=== PATIENT | male | born 1950 | race Caucasian/White ===

== ENCOUNTER 2019-06-05 10:05 | Inpatient (IN) ==
[2019-06-05] MEDS ORDERED: LACTATED RINGERS 1,000 ML IV ONE (10:25)
--- NOTE | 2019-06-05 10:28 | Emergency Department Note ---
Weakness HPI - General Chief complaint: Weakness Stated complaint: General Weakness Time Seen by Provider: 06/05/19 10:08 Source: patient, EMS Mode of arrival: EMS Limitations: no limitations - History of Present Illness HPI Narrative: This patient had right arm surgery last week and today felt dizzy lightheaded and had trouble walking due to what he thought was weakness in his legs. He is not a very reliable historian when he came in last week he did not have any idea why his arm was broken or that it was. He is developmentally delayed. He does not have a headache. No back pain. He does take blood thinners for atrial fib. He does have a pacemaker in place. No abdominal pain nausea or vomiting. - Related Data Home Medications Medication Instructions Recorded Confirmed metformin 1,000 mg tablet 1,000 mg PO BIDCC tab 03/13/15 03/22/19 pioglitazone 30 mg tablet 30 mg PO DAILY tab 03/13/15 03/22/19 pregabalin 75 mg capsule 75 mg PO TID cap 03/13/15 03/22/19 vitamin B12 500 mcg-folic acid 400 1 tab PO WEEKLY tab 04/24/15 03/22/19 mcg tablet niacin 500 mg tablet,extended 1 tab PO DAILY 30 Days #30 03/23/18 03/22/19 release 24 hr insulin aspart U-100 100 unit/mL 12 unit SUB-Q TID ml 04/01/18 03/22/19 (3 mL) subcutaneous pen insulin glargine 100 unit/mL (3 60 unit SUB-Q HS ml 04/01/18 03/22/19 mL) subcutaneous pen Magnesium Oxide [Mag-Oxide 400 mg PO BID 07/17/18 03/22/19 Magnesium] Omeprazole 20 mg PO BID 07/17/18 03/22/19 Ticagrelor [Brilinta] 90 mg PO BID 07/17/18 03/10/19 ergocalciferol (vitamin D2) 50,000 50,000 unit PO Q14D 08/19/18 03/22/19 unit capsule fenofibrate nanocrystallized 160 160 mg PO DAILY 09/20/18 03/22/19 mg tablet Aspirin 81 mg PO DAILY 10/26/18 03/22/19 Calcium Carbonate/Vitamin D3 2 tab PO BID 10/26/18 03/22/19 [Calcium 500 + Vit D Caplet] Ferrous Sulfate [Feosol] 325 mg PO [facility] 10/26/18 03/22/19 Metoprolol Tartrate [Lopressor] 150 mg PO DAILY 10/26/18 03/22/19 atorvastatin 40 mg tablet 40 mg PO DAILY tab 03/22/19 04/14/19 Previous Rx's Medication Instructions Recorded folic acid 1 mg tablet 1 mg PO DAILY #30 tab 08/16/18 chlorthalidone 25 mg tablet 25 mg PO DAILY #30 tab 03/23/19 spironolactone 50 mg tablet 25 mg PO QDAY #30 tab 03/23/19 Cephalexin [Keflex] 500 mg PO QID #40 cap 04/03/19 leflunomide 10 mg tablet 10 mg PO DAILY #90 tab 04/14/19 sodium bicarbonate 325 mg tablet 325 mg PO BID #60 tab 05/23/19 amlodipine 10 mg tablet See Rx Instructions .ROUTE 06/01/19 .COMPLEX #30 tablet Allergies Allergy/AdvReac Type Severity Reaction Status Date / Time Enalapril AdvReac Mild nausea and Verified 04/14/19 08:28 vomiting losartan [Losartan] AdvReac Mild Swelling Verified 04/14/19 08:28 Review of Systems All systems ED: reviewed and negative except as stated. 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) Splenomegaly (Chronic) Subcutaneous rheumatoid nodule (Chronic) Anemia (Chronic) Chronic leukopenia (Chronic) Chronic kidney disease, stage III (moderate) (Chronic) Vitamin D deficiency (Chronic) Vertigo (Chronic) Rheumatoid arthritis (Acute) Renal osteodystrophy (Chronic) Proteinuria (Chronic) Primary hyperparathyroidism (Chronic) Obesity (Chronic) Myocardial infarction acute (Chronic) Kidney stones (Chronic) Ischemic heart disease, chronic (Chronic) Hypertensive heart disease, benign w/chronic kidney disease stage 1-4 (Chronic) Hypertensive renal disease (Chronic 11/04/13) Hyperparathyroidism, primary (Chronic) Hyperlipidemia (Chronic) Hypertensive chronic kidney disease (Chronic) HTN (hypertension) (Chronic) Hernia, inguinal (Chronic) Hemorrhoids (Chronic) Gastroesophageal reflux (Chronic) Esophageal stricture (Chronic) Diverticulosis of colon (Chronic) Diabetes mellitus, type II (Chronic ~2003) 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) Developmental delay (Chronic) History of colonic polyps (Chronic) Cataract (Chronic) Calcification and ossification of muscle (Chronic) Backache (Chronic) Atrial fibrillation (Chronic) Anemia, iron deficiency (Chronic) Abdominal pain, LUQ (Resolved) Abnormal glucose (Resolved) Bruise of toe (Resolved) Chronic kidney disease, stage II (mild) (Resolved) Coma (Resolved) Dysmetabolic syndrome X (Resolved) Encounter for long-term current use of high risk medication (Resolved) Humerus fracture (Resolved) Laceration (Resolved) Meningitis (Resolved ~2002) Sciatic leg pain (Resolved) Type 2 diabetes mellitus with stage 2 decubitus ulcer of toe (Resolved) Urinary tract infection (Resolved) Viral meningoencephalitis (Resolved) Past Surgical History (Last Reviewed 03/22/19 @ 10:36 by Mallika Enriquez MD) History of pacemaker (Chronic) History of appendectomy (Resolved) History of cardiac catheterization (Resolved) History of cholecystectomy (Resolved) History of discectomy (Resolved) History of excision of mass (Resolved) History of inguinal hernia repair (Resolved) History of lymph node excision (Resolved) History of plastic surgery (Resolved) History of removal of cyst (Resolved) Hx of decompressive lumbar laminectomy (Resolved) Family History (This Medical Record has been edited. Action required.) Mother Acute myocardial infarction, Onset Age: 42 Medical history: Reports: atrial fibrillation, DM, hypertension, myocardial infarction, renal disease. Denies: cancer, DVT, pulmonary embolus Psychiatric history: Reports: no psych history Surgical history ED: Reports: other (pacemaker) - Social History smoking status: Never smoker Alcohol use: Reports: None Drug use: Reports: none Physical Exam He does have bruising across the top of his chest and a linear band. This may have been due to positioning during surgery is very hard to know for sure. Examination of his legs are little bit difficult. He can raise both off the table but he has trouble pulling his toes up towards him. Seems to be L to push down. Seems to have normal sensation in his legs. Limitations: no limitations General appearance: alert, in no apparent distress Head: atraumatic Eye: Present: normal appearance ENT: Present: normal exam Neck: Present: normal inspection Chest: Present: normal inspection Respiratory: Present: normal lung sounds bilaterally Cardiovascular: Present: regular rate, normal rhythm, normal heart sounds Abdominal: Present: soft. Absent: distention, tenderness Neurological: Present: alert Psychiatric: Present: normal affect Skin: Present: warm, dry Course Vital Signs Temperature 98.2 F 06/05/19 10:06 Pulse Rate 110 H 06/05/19 10:06 Respiratory Rate 20 06/05/19 10:06 Blood Pressure 142/60 06/05/19 10:06 Pulse Oximetry (%) 86 L 06/05/19 10:06 Temperature 98.2 F 06/05/19 10:06 Pulse Rate 110 H 06/05/19 17:01 Respiratory Rate 14 06/05/19 17:01 Blood Pressure 155/76 06/05/19 17:01 Pulse Oximetry (%) 99 06/05/19 17:01 Weakness - MDM Narrative Medical decision making narrative: Lab work and x-ray were not very remarkable. Patient continued to have a heart rate of 1 10-1 20 and it was regular and paced. I did talk to the installation and repair technician in [facility] who said the patient has an underlying complete heart block. He said to be nice to know the underlying rhythm but that needs to be interrogated by the pacemaker rep who refuses [facility] Psychology Lecturer did recommend treating with diltiazem as this could be a regular atrial fib due to the pacemaker. Dr. Miller will admit the patient to telemetry on diltiazem. - Lab Data Lab results reviewed: Yes I reviewed the patient's lab results. Result diagrams: 06/05/19 10:38 06/05/19 10:38 Lab Results 06/05/19 06/05/19 06/05/19 Range/Units 10:38 10:38 10:38 WBC 9.8 (4.5-11.0) K/mcL RBC 3.69 L (4.50-5.90) M/mcL Hgb 10.3 L (13.5-16.5) g/dL Hct 30.6 L (41.0-55.0) % MCV 83.0 (80.0-100.0) fL MCH 28.0 (26.0-34.0) pg MCHC 33.7 (31.0-36.0) g/dL RDW 14.8 H (11.5-14.5) % Plt Count 228 (140-440) K/mcL MPV 8.4 (7.4-10.4) fL Gran % 88.6 H (38.0-78.0) % Lymph % (Auto) 3.9 L (15.5-49.0) % Hutchinson % (Auto) 6.9 (1.0-12.0) % Eos % (Auto) 0.3 (0.0-7.0) % Baso % (Auto) 0.3 (0.0-2.0) % Gran # 8.7 H (1.8-8.0) K/mcL Lymph # (Auto) 0.4 L (1.5-4.8) K/mcL Hutchinson # (Auto) 0.7 (0.1-0.9) K/mcL Eos # (Auto) 0 (0.0-0.7) K/mcL Baso # (Auto) 0 (0.0-0.3) K/mcL PT (11.9-14.5) sec INR (0.9-1.1) Sodium 132 L (133-145) mmol/L Potassium 3.8 (3.3-5.1) mmol/L Chloride 91 L (96-108) mmol/L Carbon Dioxide 21 L (22-30) mmol/L Anion Gap 20.0 H (8-16) BUN 43 H (8-23) mg/dl Creatinine 1.4 H (0.7-1.2) mg/dl GFR Calculation 51 Glucose 276 H (70-105) mg/dL Calcium 9.5 (8.6-10.4) mg/dl Total Bilirubin 0.9 (0.0-1.0) mg/dL AST 40 H (0-37) U/l ALT 25 (0-40) U/l Alkaline Phosphatase 70 (39-117) U/L Troponin T 0.05 H* (0-0.03) ng/ml NT-Pro-B Natriuret Pep (0-125) pg/ml Total Protein 6.9 (5.9-8.4) gm/dL Albumin 3.6 (3.2-5.2) gm/dL Globulin 3.3 (2.2-3.7) gm/dL Albumin/Globulin Ratio 1.1 (1.0-2.3) 06/05/19 06/05/19 06/05/19 Range/Units 10:38 10:38 15:00 WBC (4.5-11.0) K/mcL RBC (4.50-5.90) M/mcL Hgb (13.5-16.5) g/dL Hct (41.0-55.0) % MCV (80.0-100.0) fL MCH (26.0-34.0) pg MCHC (31.0-36.0) g/dL RDW (11.5-14.5) % Plt Count (140-440) K/mcL MPV (7.4-10.4) fL Gran % (38.0-78.0) % Lymph % (Auto) (15.5-49.0) % Hutchinson % (Auto) (1.0-12.0) % Eos % (Auto) (0.0-7.0) % Baso % (Auto) (0.0-2.0) % Gran # (1.8-8.0) K/mcL Lymph # (Auto) (1.5-4.8) K/mcL Hutchinson # (Auto) (0.1-0.9) K/mcL Eos # (Auto) (0.0-0.7) K/mcL Baso # (Auto) (0.0-0.3) K/mcL PT 14.6 H (11.9-14.5) sec INR 1.1 (0.9-1.1) Sodium (133-145) mmol/L Potassium (3.3-5.1) mmol/L Chloride (96-108) mmol/L Carbon Dioxide (22-30) mmol/L Anion Gap (8-16) BUN (8-23) mg/dl Creatinine (0.7-1.2) mg/dl GFR Calculation Glucose (70-105) mg/dL Calcium (8.6-10.4) mg/dl Total Bilirubin (0.0-1.0) mg/dL AST (0-37) U/l ALT (0-40) U/l Alkaline Phosphatase (39-117) U/L Troponin T 0.03 (0-0.03) ng/ml NT-Pro-B Natriuret Pep 2382.0 H (0-125) pg/ml Total Protein (5.9-8.4) gm/dL Albumin (3.2-5.2) gm/dL Globulin (2.2-3.7) gm/dL Albumin/Globulin Ratio (1.0-2.3) - Radiology Data Radiology results reviewed: Yes I reviewed the patient's radiology results. Disposition Pt seen by INTENSIVE CARE UNIT NURSE/PA only: No Clinical Impression: Atrial fibrillation with rapid ventricular response Disposition: Xfer As Outpt/Obs ([facility]) Condition: Good Referrals: Arron Ramos MD [Primary Care Provider] - Time of Disposition: 17:27
[2019-06-05 11:14] LABS: Basophils # (Auto) 0 K/mcL (0.0-0.3); Basophils % (Auto) 0.3 % (0.0-2.0); Eosinophils # (Auto) 0 K/mcL (0.0-0.7); Eosinophils % (Auto) 0.3 % (0.0-7.0); Granulocytes % (Auto) 88.6 % (38.0-78.0); Hematocrit 30.6 % (41.0-55.0); Hemoglobin 10.3 g/dL (13.5-16.5); Lymphocytes # (Auto) 0.4 K/mcL (1.5-4.8); Lymphocytes % (Auto) 3.9 % (15.5-49.0); Mean Corpuscular HGB Conc 33.7 g/dL (31.0-36.0); Mean Platelet Volume 8.4 fL (7.4-10.4); Monocytes # (Auto) 0.7 K/mcL (0.1-0.9); Monocytes % (Auto) 6.9 % (1.0-12.0); Platelet Count 228 K/mcL (140-440); RBC 3.69 M/mcL (4.50-5.90); Red Cell Distribution Width 14.8 % (11.5-14.5); WBC 9.8 K/mcL (4.5-11.0)
[2019-06-05 11:41] LABS: ALT/SGPT 25 U/l (0-40); AST/SGOT 40 U/l (0-37); Albumin 3.6 gm/dL (3.2-5.2); Albumin/Globulin Ratio 1.1 (1.0-2.3); Alkaline Phosphatase 70 U/L (39-117); Bilirubin,Total 0.9 mg/dL (0.0-1.0); Blood Urea Nitrogen 43 mg/dl (8-23); Calcium 9.5 mg/dl (8.6-10.4); Carbon Dioxide 21 mmol/L (22-30); Chloride 91 mmol/L (96-108); Globulin 3.3 gm/dL (2.2-3.7); Glomerular Filtration Rate 51; Glucose 276 mg/dL (70-105)
--- NOTE | 2019-06-05 14:01 | XRay Report ---
CLINICAL INFORMATION: sob COMPARISON: 02/11/2019 FINDINGS: Moderate cardiomegaly is unchanged. Pacemaker leads in stable satisfactory position. Mediastinum and pulmonary vessels are normal. Lungs are clear. No effusions. IMPRESSION: Moderate stable cardiomegaly. Interpreted and Authenticated by: Gonzalez Torres 06/05/19
[2019-06-05] MEDS ORDERED: DILTIAZEM 25 MG/5 ML VIAL IV ONE ×4 (15:46→16:47)
[2019-06-05 16:27] LABS: INR 1.1 (0.9-1.1); Prothrombin Time 14.6 sec (11.9-14.5)
[2019-06-05] MEDS ORDERED: DILTIAZEM 125 MG in DEXTROSE 5% IN WATER 100 ML IV SCH ×2 (17:00)
--- NOTE | 2019-06-05 17:16 | Internal Med History&Physical ---
Medical - H&P: [facility] Patient information: Note initiated : 06/05/19 at 5:14 pm Service Date, if different from initiated Date: [] Patient: Jamie Marie 69 y/o M admitted on for General Weakness. Chief Complaint: [] Chief complaint: dizziness History of present illness: Mr. Marie is a 69 year old M with a complicated past medical history including A. fib, insulin-dependent diabetes, CAD status post pacemaker, rheumatoid arthritis, chronic kidney disease stage III and diabetic neuropathy who was discharged 2 days ago from [facility] following ORIF closed fracture fracture right humerus with nonunion repair. He was recovering well until he started noticing dizziness along with weakness lower extremity. He denies falls or associated vision change or vertigo or headache. Also denies shortness of breath. He presents to the ER for evaluation. Initial work-up was consistent with A. fib RVR with a sensed V paced. Cardiology was consulted at [facility] by ED who recommended initiation of diltiazem and admission for further management Subsequently hospitalist service is consulted At the time of evaluation patient is alert and oriented. Denies any active distress. He is currently on diltiazem drip. His heart rate around 110. He denies chest pain shortness of breath lightheadedness dizziness. He further denies diarrhea, dysuria, fever, chills or cough. 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) Splenomegaly (Chronic) Subcutaneous rheumatoid nodule (Chronic) Anemia (Chronic) Chronic leukopenia (Chronic) Chronic kidney disease, stage III (moderate) (Chronic) Vitamin D deficiency (Chronic) Vertigo (Chronic) Rheumatoid arthritis (Acute) Renal osteodystrophy (Chronic) PTH supressed at 15, vitamin D is 36, not on any vitamin D analogue's will monitor Proteinuria (Chronic) Primary hyperparathyroidism (Chronic) Obesity (Chronic) Myocardial infarction acute (Chronic) Kidney stones (Chronic) passed in 03/04 Ischemic heart disease, chronic (Chronic) Hypertensive heart disease, benign w/chronic kidney disease stage 1-4 (Chronic) Hypertensive renal disease (Chronic 11/04/13) Hyperparathyroidism, primary (Chronic) Hyperlipidemia (Chronic) Hypertensive chronic kidney disease (Chronic) HTN (hypertension) (Chronic) Hernia, inguinal (Chronic) bilateral Hemorrhoids (Chronic) Gastroesophageal reflux (Chronic) Esophageal stricture (Chronic) Diverticulosis of colon (Chronic) sigmoid Diabetes mellitus, type II (Chronic ~2002) on glipizide, metformin and actos uncontrolled per pt admits to dietary non compliance re educated about diabetic diet will establish care with Dr Harper, advised to ensure follow up 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) Developmental delay (Chronic) Secondary to encephalltis minimal reading disabillity History of colonic polyps (Chronic) Cataract (Chronic) bilateral Calcification and ossification of muscle (Chronic) Metastatic bilateral shoulders Backache (Chronic) Atrial fibrillation (Chronic) Anemia, iron deficiency (Chronic) Abdominal pain, LUQ (Resolved) Abnormal glucose (Resolved) Bruise of toe (Resolved) Chronic kidney disease, stage II (mild) (Resolved) Coma (Resolved) Hospitalized [facility] 3 weeks in coma with meningitis Dysmetabolic syndrome X (Resolved) Encounter for long-term current use of high risk medication (Resolved) Humerus fracture (Resolved) Laceration (Resolved) Meningitis (Resolved ~2002) was in a coma x3 weeks [facility] Sciatic leg pain (Resolved) Type 2 diabetes mellitus with stage 2 decubitus ulcer of toe (Resolved) Urinary tract infection (Resolved) Viral meningoencephalitis (Resolved) 2003 Surgical History History of pacemaker (Chronic) History of appendectomy (Resolved) History of cardiac catheterization (Resolved) 2004 History of cholecystectomy (Resolved) History of discectomy (Resolved) microdiscectomy lumbar 11/03 History of excision of mass (Resolved) lump on rt elbow 08 History of inguinal hernia repair (Resolved) left 07/03 History of lymph node excision (Resolved) left groin negative History of plastic surgery (Resolved) finger reattachment History of removal of cyst (Resolved) Rt leg Hx of decompressive lumbar laminectomy (Resolved) fusion L4-5 03/04 [place] Social History marital status: single other: Brother/Sister smoking status: Never smoker alcohol intake frequency: does not drink substance use type: does not use Medical - H&P: Meds Home Medications Medication Instructions Recorded Confirmed Type metformin 1,000 mg tablet 1,000 mg PO BIDCC tab 03/13/15 06/05/19 History pioglitazone 30 mg tablet 30 mg PO DAILY tab 03/13/15 06/05/19 History pregabalin 75 mg capsule 75 mg PO TID cap 03/13/15 06/05/19 History vitamin B12 500 mcg-folic acid 400 1 tab PO WEEKLY tab 04/24/15 06/05/19 History mcg tablet niacin 500 mg tablet,extended 1 tab PO DAILY 30 Days #30 03/23/18 06/05/19 History release 24 hr insulin aspart U-100 100 unit/mL 12 unit SUB-Q TID ml 04/01/18 06/05/19 History (3 mL) subcutaneous pen insulin glargine 100 unit/mL (3 60 unit SUB-Q HS ml 04/01/18 06/05/19 History mL) subcutaneous pen Magnesium Oxide [Mag-Oxide 400 mg PO BID 07/17/18 06/05/19 History Magnesium] Omeprazole 20 mg PO BID 07/17/18 06/05/19 History Ticagrelor [Brilinta] 90 mg PO BID 07/17/18 06/05/19 History folic acid 1 mg tablet 1 mg PO DAILY #30 tab 08/16/18 06/05/19 Rx ergocalciferol (vitamin D2) 50,000 50,000 unit PO Q14D 08/19/18 06/05/19 History unit capsule fenofibrate nanocrystallized 160 160 mg PO DAILY 09/20/18 06/05/19 History mg tablet Aspirin 81 mg PO DAILY 10/26/18 06/05/19 History Calcium Carbonate/Vitamin D3 2 tab PO BID 10/26/18 06/05/19 History [Calcium 500 + Vit D Caplet] Ferrous Sulfate [Feosol] [address] [facility] 10/26/18 06/05/19 History Metoprolol Tartrate [Lopressor] 150 mg PO DAILY 10/26/18 06/05/19 History atorvastatin 40 mg tablet 40 mg PO DAILY tab 03/22/19 06/05/19 History chlorthalidone 25 mg tablet 25 mg PO DAILY #30 tab 03/23/19 06/05/19 Rx spironolactone 50 mg tablet 25 mg PO QDAY #30 tab 03/23/19 06/05/19 Rx Cephalexin [Keflex] 500 mg PO QID #40 cap 04/03/19 06/05/19 Rx leflunomide 10 mg tablet 10 mg PO DAILY #90 tab 04/14/19 06/05/19 Rx sodium bicarbonate 325 mg tablet 325 mg PO BID #60 tab 05/23/19 06/05/19 Rx amlodipine 10 mg tablet See Rx Instructions .ROUTE 06/01/19 06/05/19 Rx .COMPLEX #30 tablet Allergies Allergy/AdvReac Type Severity Reaction Status Date / Time losartan [Losartan] Allergy Intermediate Swelling Verified 06/05/19 19:19 Enalapril AdvReac Mild nausea and Verified 04/14/19 08:28 vomiting Medical - H&P: Exam - Constitutional Vitals: Temp Pulse Resp BP Pulse Ox 98.2 F 110 H 14 155/76 99 06/05/19 10:06 06/05/19 17:01 06/05/19 17:01 06/05/19 17:01 06/05/19 17:01 General appearance: no acute distress Exam: Alert and respond to commands Head normocephalic Oral cavity dry No ear nose discharge Neck lymphadenopathy S1-S2 occasionally irregular, left anterior chest pacemaker, telemetry paced rhythm around 120 Diminished breath sounds bases but symmetrical Abdomen soft nontender Lower extremity no cyanosis clubbing but arthritic joint changes noted Right upper extremity dressing post recent surgical repair right humerus Skin no suspicious lesion Psych alert cooperative Neuro nonfocal Medical - H&P: Reslt - Labs CBC & Chem 7: 06/06/19 03:57 06/06/19 03:57 Labs: Short CBC 06/05/19 Range/Units 10:38 WBC 9.8 (4.5-11.0) K/mcL Hgb 10.3 L (13.5-16.5) g/dL Hct 30.6 L (41.0-55.0) % Plt Count 228 (140-440) K/mcL BMP 06/05/19 10:38 Sodium 132 L Potassium 3.8 Chloride 91 L Carbon Dioxide 21 L BUN 43 H Creatinine 1.4 H Glucose 276 H Calcium 9.5 Cardiac Enzymes 06/05/19 06/05/19 Range/Units 10:38 15:00 Troponin T 0.05 H* 0.03 (0-0.03) ng/ml Liver Function 06/05/19 Range/Units 10:38 Total Bilirubin 0.9 (0.0-1.0) mg/dL AST 40 H (0-37) U/l ALT 25 (0-40) U/l Alkaline Phosphatase 70 (39-117) U/L Albumin 3.6 (3.2-5.2) gm/dL Medical - H&P: A/P (1) Atrial fibrillation with rapid ventricular response Current visit: Yes Status: Acute * Atrial fibrillation with RVR-continue diltiazem/rate control measures. Restart on home medications. * Possible pacemaker malfunction-attempted magnetic deactivation without success. Await pacemaker inside technical sales representative for adjustments * Dizziness secondary A. fib RVR. Continue telemetry monitoring. PT OT. Continue rate control measures * History of DM type II continue basal prandial insulin/CC diet * Neuropathy continue Lyrica * Recent right shoulder ORIF continue PT OT * Hypertension continue beta-sanjay * Rheumatoid arthritis on leflunomide * Hyperlipidemia continue statin * History of CAD continue Brilinta/aspirin/statin/beta-sanjay * Full code * Prophylaxis heparin Plan * Observation admission * Rate control measures * Pre-existing medical condition management and home meds * PT OT * Pacemaker calibration * Discharge planning to residential home
[2019-06-05] MEDS ORDERED: POTASSIUM CHLORIDE 40 MEQ in DEXTROSE 5% IN WATER 500 ML IV PRN (18:44)
[2019-06-05] MEDS ORDERED: DEXTROSE 50% 50 ML VIAL IV PRN (18:44)
[2019-06-05] MEDS ORDERED: guaiFENesin/CODEINE 10 ML UDC PO PRN (18:44)
[2019-06-05] MEDS ORDERED: MAGNESIUM SULFATE 2 GM/50 ML BAG IV PRN (18:44)
[2019-06-05] MEDS ORDERED: POTASSIUM CHLORIDE 20 MEQ PACKET PO PRN (18:44)
[2019-06-05] MEDS ORDERED: ACETAMINOPHEN 650 MG/65 ML BOTTLE IV PRN (18:44)
[2019-06-05] MEDS ORDERED: ACETAMINOPHEN 325 MG TABLET PO PRN (18:44)
[2019-06-05] MEDS ORDERED: DEXTROSE 31 GM ORAL.SUSP PO PRN (18:44)
[2019-06-05] MEDS ORDERED: ONDANSETRON 4 MG/2 ML VIAL IV PRN (18:44)
[2019-06-05] MEDS ORDERED: MELATONIN 3 MG TABLET PO PRN (18:44)
[2019-06-05] MEDS ORDERED: ERGOCALCIFEROL (VITAMIN D2) 50,000 UNIT CAPSULE PO SCH (19:15)
[2019-06-05] MEDS ORDERED: WARFARIN 5 MG TABLET PO ONE (20:00)
[2019-06-05] MEDS: PREGABALIN 75 MG CAPSULE PO SCH (20:34)
[2019-06-05] MEDS: DOCUSATE SODIUM 100 MG CAPSULE PO SCH (20:34)
[2019-06-05] MEDS: CALCIUM W/VIT D3 500 MG TABLET PO SCH (20:34)
[2019-06-05] MEDS: SODIUM BICARBONATE 650 MG TABLET PO SCH (20:34)
[2019-06-05] MEDS: MAGNESIUM OXIDE 400 MG TABLET PO SCH (20:34)
[2019-06-05] MEDS: HEPARIN 5,000 UNIT/ML VIAL SQ SCH (20:35)
[2019-06-05] MEDS: 0.9 % SODIUM CHLORIDE 10 ML SYRINGE IV SCH (20:35)
[2019-06-05] MEDS: TICAGRELOR 90 MG PO SCH (20:35)
[2019-06-05] MEDS: INSULIN LISPRO 1 UNIT/0.01 ML UNIT SQ SCH (20:35)
[2019-06-05] MEDS: METOPROLOL TARTRATE 5 MG/5 ML VIAL IV SCH (20:36)
[2019-06-05] MEDS: amLODIPine 10 MG TABLET PO SCH (20:38)
[2019-06-05] MEDS ORDERED: INSULIN GLARGINE, HUMAN 1 UNIT/0.01 ML SQ SCH (21:00)
[2019-06-05] MEDS ORDERED: SENNOSIDES/DOCUSATE SODIUM 1 TAB TABLET PO SCH (21:00)
[2019-06-06] MEDS ORDERED: DILTIAZEM 125 MG in DEXTROSE 5% IN WATER 100 ML IV SCH (05:00)
[2019-06-06 05:12] LABS: Mean Cell Volume 83.9 fL (80.0-100.0); Mean Corpuscular HGB Conc 33.4 g/dL (31.0-36.0); Mean Platelet Volume 8.6 fL (7.4-10.4); Platelet Count 205 K/mcL (140-440); RBC 3.22 M/mcL (4.50-5.90); Red Cell Distribution Width 14.9 % (11.5-14.5); WBC 6.6 K/mcL (4.5-11.0)
[2019-06-06] MEDS: 0.9 % SODIUM CHLORIDE 10 ML SYRINGE IV SCH ×3 (05:23→21:12)
[2019-06-06 05:30] LABS: ALT/SGPT 19 U/l (0-40); AST/SGOT 28 U/l (0-37); Albumin 3.2 gm/dL (3.2-5.2); Alkaline Phosphatase 71 U/L (39-117); Bilirubin,Direct 0.2 mg/dL (0.0-0.3); Bilirubin,Total 0.7 mg/dL (0.0-1.0); Blood Urea Nitrogen 30 mg/dl (8-23); Calcium 9.3 mg/dl (8.6-10.4); Carbon Dioxide 27 mmol/L (22-30); Chloride 96 mmol/L (96-108); Globulin 3.1 gm/dL (2.2-3.7); Glomerular Filtration Rate 68; Glucose 273 mg/dL (70-105); Lactate Dehydrogenase 200 U/L (94-250); Phosphorous 2.5 mg/dL (2.7-4.5); Triglycerides 206 mg/dl (<150); Uric Acid 7.1 mg/dL (2.5-8.0)
[2019-06-06 06:12] LABS: Basophils % (Manual) 1 % (0-2); Eosinophils % (Manual) 1 % (0-7); Lymphocytes % 6 % (15-49); Monocytes % (Manual) 3 % (1-12); Platelet Estimate NORMAL (NORMAL); RBC Morphology NORMAL (NORMAL); Segmented Neutrophils % 89 % (38-78)
[2019-06-06] MEDS ORDERED: OMEPRAZOLE 20 MG CAPSULE PO SCH (07:30)
[2019-06-06] MEDS ORDERED: INSULIN LISPRO 1 UNIT/0.01 ML UNIT SQ SCH (07:30)
[2019-06-06] MEDS ORDERED: metFORMIN 500 MG TABLET PO SCH (08:00)
[2019-06-06] MEDS ORDERED: FERROUS SULFATE 325 MG TABLET PO SCH (08:00)
[2019-06-06] MEDS: INSULIN LISPRO 1 UNIT/0.01 ML UNIT SQ SCH ×6 (08:12→21:21)
[2019-06-06] MEDS ORDERED: NIACIN 250 MG CAP.SR.12H PO SCH (09:00)
[2019-06-06] MEDS ORDERED: FOLIC ACID 1 MG TABLET PO SCH (09:00)
[2019-06-06] MEDS ORDERED: FENOFIBRATE 43 MG CAPSULE PO SCH (09:00)
[2019-06-06] MEDS ORDERED: sitaGLIPtin 100 MG TABLET PO SCH (09:00)
[2019-06-06] MEDS ORDERED: LEFLUNOMIDE 10 MG PO SCH (09:00)
[2019-06-06] MEDS ORDERED: SPIRONOLACTONE 25 MG TABLET PO SCH (09:00)
[2019-06-06] MEDS ORDERED: CHLORTHALIDONE 25 MG TABLET PO SCH (09:00)
[2019-06-06] MEDS ORDERED: METOPROLOL TARTRATE 50 MG TABLET PO SCH (09:00)
[2019-06-06] MEDS ORDERED: ASPIRIN 81 MG TAB.CHEW PO SCH (09:00)
[2019-06-06] MEDS ORDERED: ATORVASTATIN 40 MG TABLET PO SCH (09:00)
[2019-06-06] MEDS ORDERED: PIOGLITAZONE 15 MG TABLET PO SCH (09:00)
[2019-06-06] MEDS ORDERED: MULTIVIT,THER IRON,CA,FA & MIN 1 TABLET PO SCH (09:00)
[2019-06-06] MEDS ORDERED: DEXTROSE 31 GM ORAL.SUSP PO PRN (09:33)
[2019-06-06] MEDS ORDERED: ACETAMINOPHEN 650 MG/65 ML BOTTLE IV PRN (09:33)
[2019-06-06] MEDS ORDERED: guaiFENesin/CODEINE 10 ML UDC PO PRN (09:33)
[2019-06-06] MEDS ORDERED: POTASSIUM CHLORIDE 20 MEQ PACKET PO PRN (09:33)
[2019-06-06] MEDS ORDERED: POTASSIUM CHLORIDE 40 MEQ in DEXTROSE 5% IN WATER 500 ML IV PRN (09:33)
[2019-06-06] MEDS ORDERED: NON FORMULARY MEDICATION 1 DOSE MISCELL (Cyanocobalamin/Folic Acid [Vitamin B12-Folic Acid PO SCH (09:33)
[2019-06-06] MEDS ORDERED: DEXTROSE 50% 50 ML VIAL IV PRN (09:33)
[2019-06-06 10:09] LABS: INR 1.2 (0.9-1.1); Prothrombin Time 15.4 sec (11.9-14.5)
--- NOTE | 2019-06-06 10:14 | Internal Med Progress Note ---
Medical - PN: Subj Patient information: Note initiated : 06/06/19 at 10:10 am Service Date, if different from initiated Date: [] Patient: Jamie Marie 69 y/o M admitted on 06/05/19 for General Weakness. Chief Complaint: [] Interval history: Mr. Marie is a 69 year old M with a complicated past medical history including A. 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 He was recovering well until he started noticing dizziness along with weakness lower extremity. He denies falls or associated vision change or vertigo or headache. Also denies shortness of breath. He presents to the ER for evaluation. Initial work-up was consistent with A. fib RVR with a sensed V paced excessively paced rhythm. Attempted magnetic deactivation without success. Subsequently pacemaker field representatives director contacted and await arrival for deactivation/calibration. Cardiology was also consulted at [place] by ED who recommended initiation of diltiazem and admission for further management Subsequently hospitalist service is consulted At the time of evaluation patient is alert and oriented. Denies any active distress. He is currently on diltiazem drip. His heart rate around 110. He denies chest pain shortness of breath lightheadedness dizziness. He further denies diarrhea, dysuria, fever, chills or cough. 06/06-patient doing well. No overnight events. Improved dizziness lighth eadedness. Rate controlled around 100 -110. No overnight fever chills. No concerns per nursing staff. - Constitutional Vitals: Vital Signs Temp Pulse Resp BP Pulse Ox 99.2 F H 101 H 21 140/74 98 06/06/19 00:00 06/06/19 10:01 06/06/19 10:01 06/06/19 09:02 06/06/19 10:01 Period Temp Pulse Resp BP Sys/Dennison Pulse Ox Last 24 Hr 98.2 F-99.9 F 89-120 13-30 102-170/51-158 90-100 Intake and Output 06/05/19 06/06/19 06/06/19 21:59 05:59 13:59 Intake Total 1000 34 Output Total 250 650 Balance 750 -616 Weight 225 lb 8 oz Intake & Output: Intake & Output 06/05/19 06/06/19 06/06/19 21:59 05:59 13:59 Intake Total 1000 34 Output Total 250 650 Balance 750 -616 Weight 225 lb 8 oz Intake: IV 1000 34 Cardizem 125 mg In Dextrose 5% 34 in Water 100 ml @ 5 MG/HR 5 mls /hr IV Q12H [facility] Rx#:[id number] Lactated Ringers 1,000 ml @ 1000 Wide Open IV BOLUS ONE Rx#: [id number] Output: Void Amount 250 650 Other: Urine Appearance Clear Clear Urine Color Bright Yellow Straw Dark Yellow General appearance: no acute distress Exam: Patient alert and oriented. Nonlabored breathing. Telemetry paced rhythm atrial fibrillation No anxiety No lymphedema Medical - PN: Obj Da - Labs CBC & Chem 7: 06/06/19 03:57 06/06/19 03:57 Labs: Abnormal Lab Results 06/06/19 06/06/19 06/06/19 08:47 03:57 03:57 RBC 3.22 L Hgb 9.0 L Hct 27.0 L RDW 14.9 H Gran % Lymph % (Auto) Gran # Lymph # (Auto) Seg Neutrophils % 89 H Lymphocytes % 6 L PT 15.4 H INR 1.2 H Sodium Chloride Carbon Dioxide Anion Gap BUN 30 H Creatinine Glucose 273 H Phosphorus 2.5 L AST Troponin T NT-Pro-B Natriuret Pep Triglycerides 206 H 06/05/19 06/05/19 06/05/19 10:38 10:38 10:38 RBC Hgb Hct RDW Gran % Lymph % (Auto) Gran # Lymph # (Auto) Seg Neutrophils % Lymphocytes % PT 14.6 H INR Sodium Chloride Carbon Dioxide Anion Gap BUN Creatinine Glucose Phosphorus AST Troponin T 0.05 H* NT-Pro-B Natriuret Pep 2382.0 H Triglycerides 06/05/19 06/05/19 10:38 10:38 RBC 3.69 L Hgb 10.3 L Hct 30.6 L RDW 14.8 H Gran % 88.6 H Lymph % (Auto) 3.9 L Gran # 8.7 H Lymph # (Auto) 0.4 L Seg Neutrophils % Lymphocytes % PT INR Sodium 132 L Chloride 91 L Carbon Dioxide 21 L Anion Gap 20.0 H BUN 43 H Creatinine 1.4 H Glucose 276 H Phosphorus AST 40 H Troponin T NT-Pro-B Natriuret Pep Triglycerides Meds: Medications Acetaminophen (Tylenol) 650 mg PO Q4-6HP PRN; Protocol PRN Reason: Per Pain Protocol/Fever > 101 Amlodipine Besylate (Norvasc) 10 mg PO DAILY [facility] Aspirin (Aspirin) 81 mg PO DAILY [facility] Atorvastatin Calcium (Lipitor) 40 mg PO DAILY [facility] Calcium/Vitamin D (Calcium W/Vit D3) 1,000 mg PO BID [facility] Chlorthalidone (Hygroton) 25 mg PO DAILY [facility] Dextrose (Dextrose 50%) 0 ml IV UD PRN PRN Reason: Hypoglycemia Diagnostic Test (Pha) (Accu-Chek) 1 each FS ACHS [facility] Docusate Sodium (Colace) 100 mg PO BID [facility] Ergocalciferol (Drisdol) 50,000 unit PO Q14D [facility] Fenofibrate (Antara) 129 mg PO DAILY [facility] Ferrous Sulfate (Ferrous Sulfate) 325 mg PO QAMCC [facility] Folic Acid (Folic Acid) 1 mg PO DAILY [facility] Glucose (Insta-Glucose) 15 gm PO PRN PRN PRN Reason: Hypoglycemia Guaifenesin/Codeine Phosphate (Robitussin Ac) 10 ml PO Q4HP PRN PRN Reason: Cough Heparin Sodium (Porcine) (Heparin) 5,000 unit SQ Q12 [facility] Diltiazem HCl 125 mg/ Dextrose 125 mls @ 5 mls/hr IV Q12HP PRN; Protocol PRN Reason: Tachyarrhythmias Potassium Chloride 40 meq/ (Dextrose) 520 mls @ 130 mls/hr IV UD PRN PRN Reason: K+ = or < 3.5 Magnesium Sulfate (Magnesium Sulfate) 2 gm in 50 mls @ 50 mls/hr IV UD PRN PRN Reason: MG = or < 1.7 Acetaminophen (Ofirmev) 650 mg in 65 mls @ 130 mls/hr IV Q6HP PRN; Protocol PRN Reason: Per Pain Protocol/Fever > 101 Insulin Glargine (Lantus) 60 unit SQ HS [facility] Insulin Human Lispro (Humalog) 0 unit SQ ACHS [facility]; Protocol Insulin Human Lispro (Humalog) 12 unit SQ TIDAC [facility] Iron Carb/Multivit/Orthopedic Surgeon/Folic Acid (Multivitamin W/Minerals) 1 tab PO DAILY [facility] Magnesium Oxide (Magnesium Oxide) 400 mg PO BID [facility] Melatonin (Melatonin 3mg Tablet) 3 mg PO HSP PRN PRN Reason: Insomnia Metformin HCl (Glucophage) 1,000 mg PO BIDCC [facility] Metoprolol Tartrate (Lopressor) 150 mg PO DAILY [facility] Niacin (Niacin) 500 mg PO DAILY [facility] Omeprazole (Prilosec) 20 mg PO BIDAC [facility] Ondansetron HCl (Zofran) 4 mg IV Q4-6HP PRN; Protocol PRN Reason: Nausea And Vomiting Ticagrelor [Brilinta (] 90 Mg Tab) 1 dose PO BID [facility] Leflunomide 10 Mg (Cap) 1 dose PO DAILY [facility] Pioglitazone HCl (Actos) 30 mg PO DAILY [facility] Potassium Chloride (Klor-Con) 40 meq PO DAILYP PRN PRN Reason: K+ < 3.5 Pregabalin (Lyrica) 75 mg PO TID [facility] Senna/Docusate Sodium (Senna Plus Tablet) 1 tab PO HS [facility] Sitagliptin Phosphate (Januvia) 100 mg PO DAILY [facility] Sodium Bicarbonate (Sodium Bicarbonate) 325 mg PO BID [facility] Sodium Chloride (Saline Flush) 10 ml IV Q8 [facility] Spironolactone (Aldactone) 25 mg PO DAILY [facility] Warfarin Sodium (Coumadin Per Pharmacy) 1 order PO DAILY@1400 [facility] Medical - PN: A/P - Time Spent With Patient Total time spent is greater than 50% in coordination of care (as documented) at patient's floor/unit and/or counseling patient: 25 - 35 minutes (1) Atrial fibrillation with rapid ventricular response Status: Acute Assessment and plan: * Atrial fibrillation with RVR-rate controlled on diltiazem. Await field representatives director to calibrate pacemaker settings * Possible pacemaker malfunction-failed magnetic deactivation . * Dizziness secondary A. fib RVR. Continue telemetry monitoring. No overnight events * History of DM type II continue basal prandial insulin/CC diet * Neuropathy stable on home dose Lyrica * Recent right shoulder ORIF continue PT OT * Hypertension continue beta-sanjay * Rheumatoid arthritis on leflunomide * Hyperlipidemia continue statin * History of CAD continue Brilinta/aspirin/statin/beta-sanjay * Full code * Prophylaxis heparin Plan * Continue rate control measures * Pre-existing medical condition management and home meds * Aggressive rehab * Await pacemaker calibration * Discharge planning to nursing home home Current Visit: Yes Medical - PN: Qual - VTE Deep Vein Thrombosis/Pulmonary Embolism Present on Admission: No
[2019-06-06] MEDS: OMEPRAZOLE 20 MG CAPSULE PO SCH ×2 (11:05→17:06)
[2019-06-06] MEDS: PREGABALIN 75 MG CAPSULE PO SCH ×4 (11:06→21:10)
[2019-06-06] MEDS: FERROUS SULFATE 325 MG TABLET PO SCH (11:06)
[2019-06-06] MEDS: sitaGLIPtin 100 MG TABLET PO SCH (11:06)
[2019-06-06] MEDS: metFORMIN 500 MG TABLET PO SCH ×2 (11:06→17:06)
[2019-06-06] MEDS: PIOGLITAZONE 15 MG TABLET PO SCH (11:07)
[2019-06-06] MEDS: SODIUM BICARBONATE 650 MG TABLET PO SCH ×3 (11:07→21:10)
[2019-06-06] MEDS: FENOFIBRATE 43 MG CAPSULE PO SCH (11:07)
[2019-06-06] MEDS: CHLORTHALIDONE 25 MG TABLET PO SCH (11:07)
[2019-06-06] MEDS: METOPROLOL TARTRATE 50 MG TABLET PO SCH (11:08)
[2019-06-06] MEDS: FOLIC ACID 1 MG TABLET PO SCH (11:08)
[2019-06-06] MEDS: NIACIN 250 MG CAP.SR.12H PO SCH (11:08)
[2019-06-06] MEDS: DOCUSATE SODIUM 100 MG CAPSULE PO SCH ×3 (11:08→21:10)
[2019-06-06] MEDS: ASPIRIN 81 MG TAB.CHEW PO SCH (11:08)
[2019-06-06] MEDS: ATORVASTATIN 40 MG TABLET PO SCH (11:09)
[2019-06-06] MEDS: MAGNESIUM OXIDE 400 MG TABLET PO SCH ×3 (11:09→21:11)
[2019-06-06] MEDS: HEPARIN 5,000 UNIT/ML VIAL SQ SCH ×3 (11:09→21:11)
[2019-06-06] MEDS: MULTIVIT,THER IRON,CA,FA & MIN 1 TABLET PO SCH (11:10)
[2019-06-06] MEDS: SPIRONOLACTONE 25 MG TABLET PO SCH (11:10)
[2019-06-06] MEDS: amLODIPine 10 MG TABLET PO SCH ×2 (11:10→11:30)
[2019-06-06] MEDS: CALCIUM W/VIT D3 500 MG TABLET PO SCH ×2 (11:28→21:10)
[2019-06-06] MEDS: TICAGRELOR 90 MG PO SCH (11:31)
[2019-06-06] MEDS: ONDANSETRON 4 MG/2 ML VIAL IV PRN (13:43)
[2019-06-06] MEDS ORDERED: WARFARIN 5 MG TABLET PO ONE (14:00)
[2019-06-06] MEDS ORDERED: DILTIAZEM 125 MG in DEXTROSE 5% IN WATER 100 ML IV PRN (17:00)
[2019-06-06] MEDS: SENNOSIDES/DOCUSATE SODIUM 1 TAB TABLET PO SCH (21:11)
[2019-06-06] MEDS: INSULIN GLARGINE, HUMAN 1 UNIT/0.01 ML SQ SCH (21:21)
[2019-06-06] MEDS: Ticagrelor [Brilinta] 90 mg Tab PO SCH (21:25)
[2019-06-06] MEDS: MELATONIN 3 MG TABLET PO PRN (22:57)
[2019-06-06] MEDS: ACETAMINOPHEN 325 MG TABLET PO PRN (22:59)
[2019-06-07] MEDS: 0.9 % SODIUM CHLORIDE 10 ML SYRINGE IV SCH ×3 (05:21→21:02)
[2019-06-07 06:13] LABS: INR 1.2 (0.9-1.1); Prothrombin Time 15.4 sec (11.9-14.5)
[2019-06-07 06:31] LABS: Hematocrit 27.2 % (41.0-55.0); Hemoglobin 9.1 g/dL (13.5-16.5); Mean Corpuscular HGB Conc 33.5 g/dL (31.0-36.0); Mean Platelet Volume 8.2 fL (7.4-10.4); Platelet Count 213 K/mcL (140-440); RBC 3.28 M/mcL (4.50-5.90); Red Cell Distribution Width 15.2 % (11.5-14.5); WBC 5.4 K/mcL (4.5-11.0)
[2019-06-07 06:54] LABS: ALT/SGPT 19 U/l (0-40); AST/SGOT 32 U/l (0-37); Alkaline Phosphatase 64 U/L (39-117); Bilirubin,Total 0.5 mg/dL (0.0-1.0); Blood Urea Nitrogen 27 mg/dl (8-23); Calcium 9.1 mg/dl (8.6-10.4); Carbon Dioxide 25 mmol/L (22-30); Chloride 96 mmol/L (96-108); Glomerular Filtration Rate 56; Glucose 173 mg/dL (70-105); Lactate Dehydrogenase 184 U/L (94-250); Triglycerides 200 mg/dl (<150); Uric Acid 6.3 mg/dL (2.5-8.0)
[2019-06-07 06:56] LABS: Bilirubin,Direct < 0.2 mg/dL (0.0-0.3); Phosphorous 2.3 mg/dL (2.7-4.5)
[2019-06-07] MEDS: OMEPRAZOLE 20 MG CAPSULE PO SCH ×2 (07:09→17:19)
[2019-06-07 07:38] LABS: Band Neutrophils % 1 % (0-10); Basophils % (Manual) 1 % (0-2); Eosinophils % (Manual) 4 % (0-7); Lymphocytes % 11 % (15-49); Monocytes % (Manual) 8 % (1-12); Platelet Estimate NORMAL (NORMAL); Polychromasia 1+ (NONE SEEN); RBC Morphology ABNORM (NORMAL); Reactive Lymphocytes 1 % (0-2); Segmented Neutrophils % 74 % (38-78)
[2019-06-07] MEDS: INSULIN LISPRO 1 UNIT/0.01 ML UNIT SQ SCH ×7 (07:41→20:56)
[2019-06-07] MEDS: MAGNESIUM OXIDE 400 MG TABLET PO SCH ×2 (08:40→20:44)
[2019-06-07] MEDS: MAGNESIUM SULFATE 2 GM/50 ML BAG IV PRN (08:40)
[2019-06-07] MEDS: HEPARIN 5,000 UNIT/ML VIAL SQ SCH ×2 (08:40→20:44)
[2019-06-07] MEDS: CHLORTHALIDONE 25 MG TABLET PO SCH (08:41)
[2019-06-07] MEDS: FENOFIBRATE 43 MG CAPSULE PO SCH (08:41)
[2019-06-07] MEDS: PIOGLITAZONE 15 MG TABLET PO SCH (08:41)
[2019-06-07] MEDS: DOCUSATE SODIUM 100 MG CAPSULE PO SCH ×2 (08:41→20:44)
[2019-06-07] MEDS: CALCIUM W/VIT D3 500 MG TABLET PO SCH ×2 (08:41→20:44)
[2019-06-07] MEDS: FOLIC ACID 1 MG TABLET PO SCH (08:41)
[2019-06-07] MEDS: metFORMIN 500 MG TABLET PO SCH ×2 (08:41→17:19)
[2019-06-07] MEDS: NIACIN 250 MG CAP.SR.12H PO SCH (08:41)
[2019-06-07] MEDS: SODIUM BICARBONATE 650 MG TABLET PO SCH ×2 (08:41→20:43)
[2019-06-07] MEDS: PREGABALIN 75 MG CAPSULE PO SCH ×3 (08:41→20:44)
[2019-06-07] MEDS: sitaGLIPtin 100 MG TABLET PO SCH (08:41)
[2019-06-07] MEDS: ATORVASTATIN 40 MG TABLET PO SCH (08:42)
[2019-06-07] MEDS: MULTIVIT,THER IRON,CA,FA & MIN 1 TABLET PO SCH (08:42)
[2019-06-07] MEDS: LEFLUNOMIDE 10 MG PO SCH (08:42)
[2019-06-07] MEDS: METOPROLOL TARTRATE 50 MG TABLET PO SCH (08:42)
[2019-06-07] MEDS: FERROUS SULFATE 325 MG TABLET PO SCH (08:42)
[2019-06-07] MEDS: ASPIRIN 81 MG TAB.CHEW PO SCH (08:42)
[2019-06-07] MEDS: amLODIPine 10 MG TABLET PO SCH (08:42)
[2019-06-07] MEDS: Ticagrelor [Brilinta] 90 mg Tab PO SCH ×2 (08:43→21:02)
[2019-06-07] MEDS: SPIRONOLACTONE 25 MG TABLET PO SCH (08:43)
--- NOTE | 2019-06-07 10:33 | Internal Med Progress Note ---
Medical - PN: Subj Patient information: Note initiated : 06/07/19 at 10:30 am Service Date, if different from initiated Date: [] Patient: Jamie Marie 69 y/o M admitted on 06/05/19 for General Weakness. Chief Complaint: [] Interval history: Mr. Marie is a 69 year old M with a complicated past medical history including A. 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 He was recovering well until he started noticing dizziness along with weakness lower extremity. He denies falls or associated vision change or vertigo or headache. Also denies shortness of breath. He presents to the ER for evaluation. Initial work-up was consistent with A. fib RVR with a sensed V paced excessively paced rhythm. Attempted magnetic deactivation without success. Subsequently pacemaker tax representative contacted and await arrival for deactivation/calibration. Cardiology was also consulted at [place] by ED who recommended initiation of diltiazem and admission for further management Subsequently hospitalist service is consulted At the time of evaluation patient is alert and oriented. Denies any active distress. He is currently on diltiazem drip. His heart rate around 110. He denies chest pain shortness of breath lightheadedness dizziness. He further denies diarrhea, dysuria, fever, chills or cough. 06/06-patient doing well. No overnight events. Improved dizziness lighth eadedness. Rate controlled around 100 -110. No overnight fever chills. No concerns per nursing staff. 06/07-pacemaker reconfigured by company tax representative. Patient's rate now around 80s. Still feels weak and too deconditioned to be discharged. Continue PT OT/nutrition support. Anticipate discharge to SNF due to profound deconditioning and high risk recurrent falls and injuries. - Constitutional Vitals: Vital Signs Temp Pulse Resp BP Pulse Ox 97.9 F 83 20 136/71 95 06/07/19 07:00 06/07/19 07:00 06/07/19 07:00 06/07/19 07:00 06/07/19 07:00 Period Temp Pulse Resp BP Sys/Dennison Pulse Ox Last 24 Hr 97.6 F-97.9 F 83-87 20-24 131-143/67-72 94-96 Intake and Output 06/06/19 06/07/19 06/07/19 21:59 05:59 13:59 Intake Total 620 3200 150 Output Total 250 1525 Balance 370 1675 150 Weight 230 lb Intake & Output: Intake & Output 06/06/19 06/07/19 06/07/19 21:59 05:59 13:59 Intake Total 620 3200 150 Output Total 250 1525 Balance 370 1675 150 Weight 230 lb Intake: IV 520 Potassium Chloride 40 Meq In 520 Dextrose 5% in Water 500 ml @ 130 mls/hr IV UD PRN Rx#: [id number] Oral 100 3200 150 Output: Void Amount 250 1525 Other: Meal Dinner Breakfast Percent of Meal Consumed 100% 75% Feeding Ability Independent Urine Appearance Clear Clear Urine Color Dark Yellow Pale Urine Odor Normal Normal Stool Size Small Stool Color Brown Stool Consistency Liquid # Voids 1 # Bowel Movements 1 1 General appearance: no acute distress Exam: Alert oriented nonlabored breathing No significant telemetry events No anxiety No lymphedema Medical - PN: Obj Da - Labs CBC & Chem 7: 06/07/19 04:05 06/07/19 04:05 Labs: Abnormal Lab Results 06/07/19 06/07/19 06/07/19 04:05 04:05 04:05 RBC 3.28 L Hgb 9.1 L Hct 27.2 L RDW 15.2 H Gran % Lymph % (Auto) Gran # Lymph # (Auto) Seg Neutrophils % Lymphocytes % 11 L RBC Morphology Abnorm A Polychromasia 1+ A PT 15.4 H INR 1.2 H Sodium Chloride Carbon Dioxide Anion Gap BUN 27 H Creatinine 1.3 H Glucose 173 H Phosphorus 2.3 L Magnesium 1.5 L AST Troponin T NT-Pro-B Natriuret Pep Albumin 3.0 L Triglycerides 200 H 06/06/19 06/06/19 06/06/19 08:47 03:57 03:57 RBC 3.22 L Hgb 9.0 L Hct 27.0 L RDW 14.9 H Gran % Lymph % (Auto) Gran # Lymph # (Auto) Seg Neutrophils % 89 H Lymphocytes % 6 L RBC Morphology Polychromasia PT 15.4 H INR 1.2 H Sodium Chloride Carbon Dioxide Anion Gap BUN 30 H Creatinine Glucose 273 H Phosphorus 2.5 L Magnesium AST Troponin T NT-Pro-B Natriuret Pep Albumin Triglycerides 206 H 06/05/19 06/05/19 06/05/19 10:38 10:38 10:38 RBC Hgb Hct RDW Gran % Lymph % (Auto) Gran # Lymph # (Auto) Seg Neutrophils % Lymphocytes % RBC Morphology Polychromasia PT 14.6 H INR Sodium Chloride Carbon Dioxide Anion Gap BUN Creatinine Glucose Phosphorus Magnesium AST Troponin T 0.05 H* NT-Pro-B Natriuret Pep 2382.0 H Albumin Triglycerides 06/05/19 06/05/19 10:38 10:38 RBC 3.69 L Hgb 10.3 L Hct 30.6 L RDW 14.8 H Gran % 88.6 H Lymph % (Auto) 3.9 L Gran # 8.7 H Lymph # (Auto) 0.4 L Seg Neutrophils % Lymphocytes % RBC Morphology Polychromasia PT INR Sodium 132 L Chloride 91 L Carbon Dioxide 21 L Anion Gap 20.0 H BUN 43 H Creatinine 1.4 H Glucose 276 H Phosphorus Magnesium AST 40 H Troponin T NT-Pro-B Natriuret Pep Albumin Triglycerides Meds: Medications Acetaminophen (Tylenol) 650 mg PO Q4-6HP PRN; Protocol PRN Reason: Per Pain Protocol/Fever > 101 Last Admin: 06/06/19 22:59 Dose: 650 mg Documented by: Amlodipine Besylate (Norvasc) 10 mg PO DAILY [facility] Last Admin: 06/07/19 08:42 Dose: 10 mg Documented by: Aspirin (Aspirin) 81 mg PO DAILY [facility] Last Admin: 06/07/19 08:42 Dose: 81 mg Documented by: Atorvastatin Calcium (Lipitor) 40 mg PO DAILY [facility] Last Admin: 06/07/19 08:42 Dose: 40 mg Documented by: Calcium/Vitamin D (Calcium W/Vit D3) 1,000 mg PO BID [facility] Last Admin: 06/07/19 08:41 Dose: 1,000 mg Documented by: Chlorthalidone (Hygroton) 25 mg PO DAILY [facility] Last Admin: 06/07/19 08:41 Dose: 25 mg Documented by: Dextrose (Dextrose 50%) 0 ml IV UD PRN PRN Reason: Hypoglycemia Diagnostic Test (Pha) (Accu-Chek) 1 each FS ACHS [facility] Last Admin: 06/07/19 07:40 Dose: 1 each Documented by: Docusate Sodium (Colace) 100 mg PO BID [facility] Last Admin: 06/07/19 08:41 Dose: 100 mg Documented by: Ergocalciferol (Drisdol) 50,000 unit PO Q14D [facility] Fenofibrate (Antara) 129 mg PO DAILY [facility] Last Admin: 06/07/19 08:41 Dose: 129 mg Documented by: Ferrous Sulfate (Ferrous Sulfate) 325 mg PO QAMCC [facility] Last Admin: 06/07/19 08:42 Dose: 325 mg Documented by: Folic Acid (Folic Acid) 1 mg PO DAILY [facility] Last Admin: 06/07/19 08:41 Dose: 1 mg Documented by: Glucose (Insta-Glucose) 15 gm PO PRN PRN PRN Reason: Hypoglycemia Guaifenesin/Codeine Phosphate (Robitussin Ac) 10 ml PO Q4HP PRN PRN Reason: Cough Heparin Sodium (Porcine) (Heparin) 5,000 unit SQ Q12 [facility] Last Admin: 06/07/19 08:40 Dose: 5,000 unit Documented by: Diltiazem HCl 125 mg/ Dextrose 125 mls @ 5 mls/hr IV Q12HP PRN; Protocol PRN Reason: Tachyarrhythmias Potassium Chloride 40 meq/ (Dextrose) 520 mls @ 130 mls/hr IV UD PRN PRN Reason: K+ = or < 3.5 Magnesium Sulfate (Magnesium Sulfate) 2 gm in 50 mls @ 50 mls/hr IV UD PRN PRN Reason: MG = or < 1.7 Last Admin: 06/07/19 08:40 Dose: 50 mls/hr Documented by: Acetaminophen (Ofirmev) 650 mg in 65 mls @ 130 mls/hr IV Q6HP PRN; Protocol PRN Reason: Per Pain Protocol/Fever > 101 Insulin Glargine (Lantus) 60 unit SQ HS [facility] Last Admin: 06/06/19 21:21 Dose: 60 units Documented by: Insulin Human Lispro (Humalog) 0 unit SQ ACHS [facility]; Protocol Last Admin: 06/07/19 07:41 Dose: 2 units Documented by: Insulin Human Lispro (Humalog) 12 unit SQ TIDAC [facility] Last Admin: 06/07/19 07:42 Dose: 12 units Documented by: Iron Carb/Multivit/[place]/Folic Acid (Multivitamin W/Minerals) 1 tab PO DAILY [facility] Last Admin: 06/07/19 08:42 Dose: 1 tab Documented by: Magnesium Oxide (Magnesium Oxide) 400 mg PO BID [facility] Last Admin: 06/07/19 08:40 Dose: 400 mg Documented by: Melatonin (Melatonin 3mg Tablet) 3 mg PO HSP PRN PRN Reason: Insomnia Last Admin: 06/06/19 22:57 Dose: 3 mg Documented by: Metformin HCl (Glucophage) 1,000 mg PO BIDCC [facility] Last Admin: 06/07/19 08:41 Dose: 1,000 mg Documented by: Metoprolol Tartrate (Lopressor) 150 mg PO DAILY [facility] Last Admin: 06/07/19 08:42 Dose: 150 mg Documented by: Niacin (Niacin) 500 mg PO DAILY [facility] Last Admin: 06/07/19 08:41 Dose: 500 mg Documented by: Omeprazole (Prilosec) 20 mg PO BIDAC [facility] Last Admin: 06/07/19 07:09 Dose: 20 mg Documented by: Ondansetron HCl (Zofran) 4 mg IV Q4-6HP PRN; Protocol PRN Reason: Nausea And Vomiting Last Admin: 06/06/19 13:43 Dose: 4 mg Documented by: Ticagrelor [Brilinta (] 90 Mg Tab) 1 dose PO BID [facility] Last Admin: 06/07/19 08:43 Dose: Not Given Documented by: Leflunomide 10 Mg (Cap) 1 dose PO DAILY [facility] Last Admin: 06/07/19 08:42 Dose: Not Given Documented by: Pioglitazone HCl (Actos) 30 mg PO DAILY [facility] Last Admin: 06/07/19 08:41 Dose: 30 mg Documented by: Potassium Chloride (Klor-Con) 40 meq PO DAILYP PRN PRN Reason: K+ < 3.5 Last Admin: 06/06/19 11:06 Dose: 40 meq Documented by: Pregabalin (Lyrica) 75 mg PO TID [facility] Last Admin: 06/07/19 08:41 Dose: 75 mg Documented by: Senna/Docusate Sodium (Senna Plus Tablet) 1 tab PO HS [facility] Last Admin: 06/06/19 21:11 Dose: 1 tab Documented by: Sitagliptin Phosphate (Januvia) 100 mg PO DAILY [facility] Last Admin: 06/07/19 08:41 Dose: 100 mg Documented by: Sodium Bicarbonate (Sodium Bicarbonate) 325 mg PO BID [facility] Last Admin: 06/07/19 08:41 Dose: 325 mg Documented by: Sodium Chloride (Saline Flush) 10 ml IV Q8 [facility] Last Admin: 06/07/19 05:21 Dose: 10 ml Documented by: Spironolactone (Aldactone) 25 mg PO DAILY [facility] Last Admin: 06/07/19 08:43 Dose: 25 mg Documented by: Warfarin Sodium (Coumadin Per Pharmacy) 1 order PO UD [facility] Medical - PN: A/P - Time Spent With Patient Total time spent is greater than 50% in coordination of care (as documented) at patient's floor/unit and/or counseling patient: 15 - 24 minutes (1) Atrial fibrillation with rapid ventricular response Status: Acute Assessment and plan: * Atrial fibrillation with RVR now rate controlled. Pacemaker recalibrated by company tax representative * Dizziness multifactorial. Clinically improving. Secondary to deconditioning and A. fib RVR. Continue aggressive PT OT/discharge planning to SNF * History of DM type II continue basal prandial insulin/CC diet * Neuropathy stable on home dose Lyrica * Recent right shoulder ORIF continue PT OT * Hypertension continue beta-sanjay * Rheumatoid arthritis on leflunomide * Hyperlipidemia continue statin * History of CAD continue Brilinta/aspirin/statin/beta-sanjay * Full code * Prophylaxis heparin Plan * PT OT/nutrition support * Pre-existing medical condition management and home meds * Discharge planning to senior care home likely in 24 hours Current Visit: Yes Medical - PN: Qual - VTE Deep Vein Thrombosis/Pulmonary Embolism Present on Admission: No
[2019-06-07] MEDS: ACETAMINOPHEN 325 MG TABLET PO PRN (20:42)
[2019-06-07] MEDS: SENNOSIDES/DOCUSATE SODIUM 1 TAB TABLET PO SCH (20:43)
[2019-06-07] MEDS: MELATONIN 3 MG TABLET PO PRN (20:44)
[2019-06-07] MEDS: INSULIN GLARGINE, HUMAN 1 UNIT/0.01 ML SQ SCH (20:57)
[2019-06-08] MEDS: 0.9 % SODIUM CHLORIDE 10 ML SYRINGE IV SCH ×3 (05:07→23:53)
[2019-06-08 06:29] LABS: Hematocrit 29.3 % (41.0-55.0); Hemoglobin 9.7 g/dL (13.5-16.5); Mean Cell Volume 84.5 fL (80.0-100.0); Mean Corpuscular HGB Conc 32.9 g/dL (31.0-36.0); Mean Platelet Volume 8.1 fL (7.4-10.4); Platelet Count 222 K/mcL (140-440); RBC 3.47 M/mcL (4.50-5.90); Red Cell Distribution Width 15.1 % (11.5-14.5); WBC 4.3 K/mcL (4.5-11.0)
[2019-06-08 06:37] LABS: INR 1.3 (0.9-1.1); Prothrombin Time 15.7 sec (11.9-14.5)
[2019-06-08 07:14] LABS: ALT/SGPT 18 U/l (0-40); AST/SGOT 26 U/l (0-37); Albumin 3.1 gm/dL (3.2-5.2); Alkaline Phosphatase 70 U/L (39-117); Bilirubin,Direct < 0.2 mg/dL (0.0-0.3); Bilirubin,Total 0.4 mg/dL (0.0-1.0); Blood Urea Nitrogen 24 mg/dl (8-23); Calcium 9.3 mg/dl (8.6-10.4); Carbon Dioxide 25 mmol/L (22-30); Chloride 100 mmol/L (96-108); Glomerular Filtration Rate 47; Glucose 174 mg/dL (70-105); Lactate Dehydrogenase 206 U/L (94-250); Phosphorous 2.7 mg/dL (2.7-4.5); Triglycerides 246 mg/dl (<150); Uric Acid 6.1 mg/dL (2.5-8.0)
[2019-06-08 08:19] LABS: Eosinophils % (Manual) 7 % (0-7); Lymphocytes % 17 % (15-49); Monocytes % (Manual) 7 % (1-12); Platelet Estimate NORMAL (NORMAL); Polychromasia 1+ (NONE SEEN); RBC Morphology ABNORM (NORMAL); Segmented Neutrophils % 69 % (38-78)
[2019-06-08] MEDS: INSULIN LISPRO 1 UNIT/0.01 ML UNIT SQ SCH ×8 (08:48→23:51)
[2019-06-08] MEDS: ONDANSETRON 4 MG/2 ML VIAL IV PRN (09:02)
[2019-06-08] MEDS: FOLIC ACID 1 MG TABLET PO SCH (09:10)
[2019-06-08] MEDS: sitaGLIPtin 100 MG TABLET PO SCH (09:10)
[2019-06-08] MEDS: ASPIRIN 81 MG TAB.CHEW PO SCH (09:10)
[2019-06-08] MEDS: OMEPRAZOLE 20 MG CAPSULE PO SCH ×2 (09:10→21:46)
[2019-06-08] MEDS: CALCIUM W/VIT D3 500 MG TABLET PO SCH ×2 (09:11→21:45)
[2019-06-08] MEDS: CHLORTHALIDONE 25 MG TABLET PO SCH (09:11)
[2019-06-08] MEDS: metFORMIN 500 MG TABLET PO SCH ×2 (09:11→21:44)
[2019-06-08] MEDS: PREGABALIN 75 MG CAPSULE PO SCH ×3 (09:11→21:46)
[2019-06-08] MEDS: PIOGLITAZONE 15 MG TABLET PO SCH (09:11)
[2019-06-08] MEDS: FERROUS SULFATE 325 MG TABLET PO SCH (09:12)
[2019-06-08] MEDS: SODIUM BICARBONATE 650 MG TABLET PO SCH ×2 (09:12→21:46)
[2019-06-08] MEDS: ATORVASTATIN 40 MG TABLET PO SCH (09:12)
[2019-06-08] MEDS: METOPROLOL TARTRATE 50 MG TABLET PO SCH (09:12)
[2019-06-08] MEDS: MULTIVIT,THER IRON,CA,FA & MIN 1 TABLET PO SCH (09:12)
[2019-06-08] MEDS: DOCUSATE SODIUM 100 MG CAPSULE PO SCH ×2 (09:12→21:46)
[2019-06-08] MEDS: MAGNESIUM OXIDE 400 MG TABLET PO SCH ×2 (09:13→21:45)
[2019-06-08] MEDS: SPIRONOLACTONE 25 MG TABLET PO SCH (09:13)
[2019-06-08] MEDS: LEFLUNOMIDE 10 MG PO SCH (09:14)
[2019-06-08] MEDS: Ticagrelor [Brilinta] 90 mg Tab PO SCH ×2 (09:14→23:53)
[2019-06-08] MEDS: HEPARIN 5,000 UNIT/ML VIAL SQ SCH ×2 (09:14→21:44)
[2019-06-08] MEDS: NIACIN 250 MG CAP.SR.12H PO SCH (09:49)
[2019-06-08] MEDS: FENOFIBRATE 43 MG CAPSULE PO SCH (09:49)
[2019-06-08] MEDS: amLODIPine 10 MG TABLET PO SCH (09:49)
[2019-06-08] MEDS ORDERED: FUROSEMIDE 40 MG/4 ML VIAL IV ONE (13:55)
[2019-06-08] MEDS ORDERED: WARFARIN 5 MG TABLET PO SCH (14:00)
--- NOTE | 2019-06-08 14:37 | Internal Med Progress Note ---
Medical - PN: Subj Patient information: Note initiated : 06/08/19 at 2:32 pm Service Date, if different from initiated Date: [] Patient: Jamie Marie 69 y/o M admitted on 06/05/19 for General Weakness. Chief Complaint: [] Interval history: Mr. Marie is a 69 year old M with a complicated past medical history including A. 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 He was recovering well until he started noticing dizziness along with weakness lower extremity. He denies falls or associated vision change or vertigo or headache. Also denies shortness of breath. He presents to the ER for evaluation. Initial work-up was consistent with A. fib RVR with a sensed V paced excessively paced rhythm. Attempted magnetic deactivation without success. Subsequently pacemaker business banking representative contacted and await arrival for deactivation/calibration. Cardiology was also consulted at [place] by ED who recommended initiation of diltiazem and admission for further management Subsequently hospitalist service is consulted At the time of evaluation patient is alert and oriented. Denies any active distress. He is currently on diltiazem drip. His heart rate around 110. He denies chest pain shortness of breath lightheadedness dizziness. He further denies diarrhea, dysuria, fever, chills or cough. 06/06-patient doing well. No overnight events. Improved dizziness lighthe adedness. Rate controlled around 100 -110. No overnight fever chills. No concerns per nursing staff. 06/07-pacemaker reconfigured by company business banking representative. Patient's rate now around 80s. Still feels weak and too deconditioned to be discharged. Continue PT OT/nutrition support. Anticipate discharge to SNF due to profound deconditioning and high risk recurrent falls and injuries. 06/08-patient seen in room. Patient was ready to be discharged today however complained of multiple shocks experience substernal area. Patient does not have a defibrillator however recently pacemaker malfunction was addressed. Patient since has had 3 episodes of shocks. Pacemaker business banking representative will be consulted for interrogation for a possible malfunction. Hold discharge until further recommendations. Continue telemetry monitoring. No overnight fever chills. Creatinine gradually up trending to 1.5. Patient also complains of slight swelling in right shoulder pain currently in sling. - Constitutional Vitals: Vital Signs Temp Pulse Resp BP Pulse Ox 98.0 F 84 18 167/87 96 06/08/19 08:00 06/08/19 02:48 06/08/19 08:00 06/08/19 08:00 06/08/19 08:00 Period Temp Pulse Resp BP Sys/Dennison Pulse Ox Last 24 Hr 97.5 F-98.8 F 78-88 16-22 119-167/69-87 95-99 Intake and Output 06/08/19 06/08/19 06/08/19 05:59 13:59 21:59 Intake Total 615 240 Output Total 575 600 Balance 40 -360 Intake & Output: Intake & Output 06/08/19 06/08/19 06/08/19 05:59 13:59 21:59 Intake Total 615 240 Output Total 575 600 Balance 40 -360 Intake: Oral 615 240 Output: Void Amount 575 600 Other: Meal [place] Percent of Meal Consumed 100% 90 Feeding Ability Independent Independent Urine Appearance Clear Clear Urine Color Bright Yellow Pale Urine Odor Normal Normal Stool Size Moderate Stool Color Brown Stool Consistency Soft # Voids 1 # Bowel Movements 1 Medical - PN: Obj Da - Labs CBC & Chem 7: 06/08/19 04:20 06/08/19 04:20 Labs: Abnormal Lab Results 06/08/19 06/08/19 06/08/19 04:20 04:20 04:20 WBC 4.3 L RBC 3.47 L Hgb 9.7 L Hct 29.3 L RDW 15.1 H Seg Neutrophils % Lymphocytes % RBC Morphology Abnorm A Polychromasia 1+ A PT 15.7 H INR 1.3 H BUN 24 H Creatinine 1.5 H Glucose 174 H Phosphorus Magnesium Albumin 3.1 L Triglycerides 246 H 06/07/19 06/07/19 06/07/19 04:05 04:05 04:05 WBC RBC 3.28 L Hgb 9.1 L Hct 27.2 L RDW 15.2 H Seg Neutrophils % Lymphocytes % 11 L RBC Morphology Abnorm A Polychromasia 1+ A PT 15.4 H INR 1.2 H BUN 27 H Creatinine 1.3 H Glucose 173 H Phosphorus 2.3 L Magnesium 1.5 L Albumin 3.0 L Triglycerides 200 H 06/06/19 06/06/19 06/06/19 08:47 03:57 03:57 WBC RBC 3.22 L Hgb 9.0 L Hct 27.0 L RDW 14.9 H Seg Neutrophils % 89 H Lymphocytes % 6 L RBC Morphology Polychromasia PT 15.4 H INR 1.2 H BUN 30 H Creatinine Glucose 273 H Phosphorus 2.5 L Magnesium Albumin Triglycerides 206 H 06/05/19 10:38 WBC RBC Hgb Hct RDW Seg Neutrophils % Lymphocytes % RBC Morphology Polychromasia PT 14.6 H INR BUN Creatinine Glucose Phosphorus Magnesium Albumin Triglycerides Meds: Medications Acetaminophen (Tylenol) 650 mg PO Q4-6HP PRN; Protocol PRN Reason: Per Pain Protocol/Fever > 101 Last Admin: 06/07/19 20:42 Dose: 650 mg Documented by: Amlodipine Besylate (Norvasc) 10 mg PO DAILY [facility] Last Admin: 06/08/19 09:49 Dose: 10 mg Documented by: Aspirin (Aspirin) 81 mg PO DAILY [facility] Last Admin: 06/08/19 09:10 Dose: 81 mg Documented by: Atorvastatin Calcium (Lipitor) 40 mg PO DAILY [facility] Last Admin: 06/08/19 09:12 Dose: 40 mg Documented by: Calcium/Vitamin D (Calcium W/Vit D3) 1,000 mg PO BID [facility] Last Admin: 06/08/19 09:11 Dose: 1,000 mg Documented by: Chlorthalidone (Hygroton) 25 mg PO DAILY [facility] Last Admin: 06/08/19 09:11 Dose: 25 mg Documented by: Dextrose (Dextrose 50%) 0 ml IV UD PRN PRN Reason: Hypoglycemia Diagnostic Test (Pha) (Accu-Chek) 1 each FS ACHS [facility] Last Admin: 06/08/19 11:49 Dose: 1 each Documented by: Docusate Sodium (Colace) 100 mg PO BID [facility] Last Admin: 06/08/19 09:12 Dose: 100 mg Documented by: Ergocalciferol (Drisdol) 50,000 unit PO Q14D [facility] Fenofibrate (Antara) 129 mg PO DAILY [facility] Last Admin: 06/08/19 09:49 Dose: 129 mg Documented by: Ferrous Sulfate (Ferrous Sulfate) [facility] Last Admin: 06/08/19 09:12 Dose: 325 mg Documented by: Folic Acid (Folic Acid) 1 mg PO DAILY [facility] Last Admin: 06/08/19 09:10 Dose: 1 mg Documented by: Glucose (Insta-Glucose) 15 gm PO PRN PRN PRN Reason: Hypoglycemia Guaifenesin/Codeine Phosphate (Robitussin Ac) 10 ml PO Q4HP PRN PRN Reason: Cough Heparin Sodium (Porcine) (Heparin) 5,000 unit SQ Q12 [facility] Last Admin: 06/08/19 09:14 Dose: 5,000 unit Documented by: Diltiazem HCl 125 mg/ Dextrose 125 mls @ 5 mls/hr IV Q12HP PRN; Protocol PRN Reason: Tachyarrhythmias Potassium Chloride 40 meq/ (Dextrose) 520 mls @ 130 mls/hr IV UD PRN PRN Reason: K+ = or < 3.5 Magnesium Sulfate (Magnesium Sulfate) 2 gm in 50 mls @ 50 mls/hr IV UD PRN PRN Reason: MG = or < 1.7 Last Admin: 06/07/19 08:40 Dose: 50 mls/hr Documented by: Acetaminophen (Ofirmev) 650 mg in 65 mls @ 130 mls/hr IV Q6HP PRN; Protocol PRN Reason: Per Pain Protocol/Fever > 101 Insulin Glargine (Lantus) 60 unit SQ HS [facility] Last Admin: 06/07/19 20:57 Dose: 60 units Documented by: Insulin Human Lispro (Humalog) 0 unit SQ ACHS [facility]; Protocol Last Admin: 06/08/19 11:50 Dose: Not Given Documented by: Insulin Human Lispro (Humalog) 12 unit SQ TIDAC [facility] Last Admin: 06/08/19 11:54 Dose: 12 units Documented by: Iron Carb/Multivit/Yarnell/Folic Acid (Multivitamin W/Minerals) 1 tab PO DAILY [facility] Last Admin: 06/08/19 09:12 Dose: 1 tab Documented by: Magnesium Oxide (Magnesium Oxide) 400 mg PO BID [facility] Last Admin: 06/08/19 09:13 Dose: 400 mg Documented by: Melatonin (Melatonin 3mg Tablet) 3 mg PO HSP PRN PRN Reason: Insomnia Last Admin: 06/07/19 20:44 Dose: 3 mg Documented by: Metformin HCl (Glucophage) [facility] Last Admin: 06/08/19 09:11 Dose: 1,000 mg Documented by: Metoprolol Tartrate (Lopressor) 150 mg PO DAILY [facility] Last Admin: 06/08/19 09:12 Dose: 150 mg Documented by: Niacin (Niacin) 500 mg PO DAILY [facility] Last Admin: 06/08/19 09:49 Dose: 500 mg Documented by: Omeprazole (Prilosec) 20 mg PO BIDAC [facility] Last Admin: 06/08/19 09:10 Dose: 20 mg Documented by: Ondansetron HCl (Zofran) 4 mg IV Q4-6HP PRN; Protocol PRN Reason: Nausea And Vomiting Last Admin: 06/08/19 09:02 Dose: 4 mg Documented by: Ticagrelor [Brilinta (] 90 Mg Tab) 1 dose PO BID [facility] Last Admin: 06/08/19 09:14 Dose: Not Given Documented by: Leflunomide 10 Mg (Cap) 1 dose PO DAILY [facility] Last Admin: 06/08/19 09:14 Dose: Not Given Documented by: Pioglitazone HCl (Actos) 30 mg PO DAILY [facility] Last Admin: 06/08/19 09:11 Dose: 30 mg Documented by: Potassium Chloride (Klor-Con) 40 meq PO DAILYP PRN PRN Reason: K+ < 3.5 Last Admin: 06/06/19 11:06 Dose: 40 meq Documented by: Pregabalin (Lyrica) 75 mg PO TID [facility] Last Admin: 06/08/19 09:11 Dose: 75 mg Documented by: Senna/Docusate Sodium (Senna Plus Tablet) 1 tab PO HS [facility] Last Admin: 06/07/19 20:43 Dose: 1 tab Documented by: Sitagliptin Phosphate (Januvia) 100 mg PO DAILY [facility] Last Admin: 06/08/19 09:10 Dose: 100 mg Documented by: Sodium Bicarbonate (Sodium Bicarbonate) 325 mg PO BID [facility] Last Admin: 06/08/19 09:12 Dose: 325 mg Documented by: Sodium Chloride (Saline Flush) 10 ml IV Q8 [facility] Last Admin: 06/08/19 05:07 Dose: 10 ml Documented by: Spironolactone (Aldactone) 25 mg PO DAILY [facility] Last Admin: 06/08/19 09:13 Dose: 25 mg Documented by: Warfarin Sodium (Coumadin Per Pharmacy) 1 [place] PO [facility] [place]far[place] Sodium (Coumadin) 5 mg PO TODAY@1400 [facility] Stop: 06/08/19 16:00 Medical - PN: A/P - Time Spent With Patient Total time spent is greater than 50% in coordination of care (as documented) at patient's floor/unit and/or counseling patient: 25 - 35 minutes (1) Atrial fibrillation with rapid ventricular response Status: Acute Assessment and plan: * Pacemaker discharge /intermittent shocks-possible pacemaker malfunction. Await company business banking representative for interrogation * Atrial fibrillation with RVR now rate controlled. Pacemaker recalibrated by company business banking representative 06/07. Rate now controlled around 80. Continue telemetry monitoring * Dizziness and deconditioning. Secondary to A. fib RVR. Ongoing PT OT/SNF transfer coordination for continued posthospitalization rehab * Generalized lymphedema/volume overload. Start diuretics * History of DM type II continue basal prandial insulin/CC diet * Neuropathy stable on home dose Lyrica * Recent right shoulder ORIF - continue PT OT. Follow-up outpatient orthopedics * Hypertension continue beta-sanjay * Rheumatoid arthritis on leflunomide * Hyperlipidemia continue statin * History of CAD continue Brilinta/aspirin/statin/beta-sanjay * Full code * Prophylaxis heparin, discontinue Coumadin based on [place] discharge recommendations Plan * DC Coumadin * Reevaluate pacemaker for malfunction * Continue telemetry monitoring * Start diuretics for volume overload * Continue telemetry monitoring * PT OT/nutrition support * Pre-existing medical condition management and home meds * Hold SNF transfer for 24 hours until pacemaker interrogation * Orthopedics follow-up on discharge for right shoulder ORIF Current Visit: Yes Medical - PN: Qual - VTE Deep Vein Thrombosis/Pulmonary Embolism Present on Admission: No
[2019-06-08] MEDS: SENNOSIDES/DOCUSATE SODIUM 1 TAB TABLET PO SCH (21:45)
[2019-06-08] MEDS: INSULIN GLARGINE, HUMAN 1 UNIT/0.01 ML SQ SCH (23:52)
[2019-06-09] MEDS: 0.9 % SODIUM CHLORIDE 10 ML SYRINGE IV SCH (05:10)
[2019-06-09] MEDS: ACETAMINOPHEN 325 MG TABLET PO PRN (06:07)
[2019-06-09 06:54] LABS: Hematocrit 30.1 % (41.0-55.0); Hemoglobin 10.1 g/dL (13.5-16.5); Mean Cell Volume 83.4 fL (80.0-100.0); Mean Corpuscular HGB Conc 33.5 g/dL (31.0-36.0); Mean Platelet Volume 8.3 fL (7.4-10.4); Platelet Count 226 K/mcL (140-440); RBC 3.61 M/mcL (4.50-5.90); Red Cell Distribution Width 14.9 % (11.5-14.5); WBC 4.8 K/mcL (4.5-11.0)
[2019-06-09 07:14] LABS: INR 1.2 (0.9-1.1); Prothrombin Time 14.9 sec (11.9-14.5)
[2019-06-09] MEDS: FERROUS SULFATE 325 MG TABLET PO SCH (07:58)
[2019-06-09] MEDS: OMEPRAZOLE 20 MG CAPSULE PO SCH (07:59)
[2019-06-09] MEDS: INSULIN LISPRO 1 UNIT/0.01 ML UNIT SQ SCH ×2 (07:59)
[2019-06-09] MEDS: metFORMIN 500 MG TABLET PO SCH (07:59)
[2019-06-09 08:04] LABS: ALT/SGPT 17 U/l (0-40); AST/SGOT 27 U/l (0-37); Albumin 3.4 gm/dL (3.2-5.2); Albumin/Globulin Ratio 1.1 (1.0-2.3); Alkaline Phosphatase 60 U/L (39-117); Bilirubin,Direct < 0.2 mg/dL (0.0-0.3); Bilirubin,Total 0.4 mg/dL (0.0-1.0); Blood Urea Nitrogen 27 mg/dl (8-23); Calcium 9.6 mg/dl (8.6-10.4); Carbon Dioxide 25 mmol/L (22-30); Chloride 98 mmol/L (96-108); Globulin 3.1 gm/dL (2.2-3.7); Glomerular Filtration Rate 43; Glucose 105 mg/dL (70-105); Lactate Dehydrogenase 216 U/L (94-250); Phosphorous 3.9 mg/dL (2.7-4.5); Triglycerides 251 mg/dl (<150); Uric Acid 6.8 mg/dL (2.5-8.0)
[2019-06-09 08:24] LABS: Anisocytosis FEW (NONE SEEN); Eosinophils % (Manual) 5 % (0-7); Lymphocytes % 10 % (15-49); Monocytes % (Manual) 12 % (1-12); Platelet Estimate NORMAL (NORMAL); Polychromasia FEW (NONE SEEN); RBC Morphology ABNORM (NORMAL); Segmented Neutrophils % 73 % (38-78)
[2019-06-09] MEDS: MAGNESIUM SULFATE 2 GM/50 ML BAG IV PRN (10:00)
[2019-06-09] MEDS: DOCUSATE SODIUM 100 MG CAPSULE PO SCH (10:01)
[2019-06-09] MEDS: PREGABALIN 75 MG CAPSULE PO SCH (10:01)
[2019-06-09] MEDS: NIACIN 250 MG CAP.SR.12H PO SCH (10:02)
[2019-06-09] MEDS: FENOFIBRATE 43 MG CAPSULE PO SCH (10:02)
[2019-06-09] MEDS: SODIUM BICARBONATE 650 MG TABLET PO SCH (10:02)
[2019-06-09] MEDS: ASPIRIN 81 MG TAB.CHEW PO SCH (10:03)
[2019-06-09] MEDS: MAGNESIUM OXIDE 400 MG TABLET PO SCH (10:03)
[2019-06-09] MEDS: sitaGLIPtin 100 MG TABLET PO SCH (10:03)
[2019-06-09] MEDS: amLODIPine 10 MG TABLET PO SCH (10:03)
[2019-06-09] MEDS: PIOGLITAZONE 15 MG TABLET PO SCH (10:03)
[2019-06-09] MEDS: MULTIVIT,THER IRON,CA,FA & MIN 1 TABLET PO SCH (10:04)
[2019-06-09] MEDS: CHLORTHALIDONE 25 MG TABLET PO SCH (10:04)
[2019-06-09] MEDS: HEPARIN 5,000 UNIT/ML VIAL SQ SCH (10:04)
[2019-06-09] MEDS: ATORVASTATIN 40 MG TABLET PO SCH (10:04)
[2019-06-09] MEDS: FOLIC ACID 1 MG TABLET PO SCH (10:04)
[2019-06-09] MEDS: METOPROLOL TARTRATE 50 MG TABLET PO SCH (10:05)
[2019-06-09] MEDS: SPIRONOLACTONE 25 MG TABLET PO SCH (10:05)
[2019-06-09] MEDS: LEFLUNOMIDE 10 MG PO SCH (10:55)
[2019-06-09] MEDS: Ticagrelor [Brilinta] 90 mg Tab PO SCH (10:55)
[2019-06-09] MEDS: CALCIUM W/VIT D3 500 MG TABLET PO SCH (10:56)
--- NOTE | 2019-06-09 10:59 | Discharge Summary ---
Medical - DS: Prov Patient information: Note initiated : 06/09/19 at 10:57 am Service Date, if different from initiated Date: [] Patient: Jamie Marie 69 y/o M admitted on 06/05/19 for General Weakness. Chief Complaint: [] Date of admission: 06/05/19 18:36 Discharge date: 06/09/19 Primary care physician: Arron Ramos Consults: 06/06/19 07:28 Consult to Physician [CONS] Routine Comment: Consulting Provider: Gabriel Pichardo Reason For Exam: Physician to Consult Medical - DS: Meds - Discharge Medications Active and Home Medications: Home Medications metformin 1,000 mg tablet 1,000 mg PO BIDCC tab 03/13/15 [History Confirmed 06/05/19 Last Taken 10/25/18] pioglitazone 30 mg tablet 30 mg PO DAILY tab 03/13/15 [History Confirmed 06/05/19 Last Taken 10/25/18] pregabalin 75 mg capsule 75 mg PO TID cap 03/13/15 [History Confirmed 06/05/19 Last Taken 10/25/18] vitamin B12 500 mcg-folic acid 400 mcg tablet 1 tab PO WEEKLY tab 04/24/15 [History Confirmed 06/05/19 Last Taken 08/31/17] niacin 500 mg tablet,extended release 24 hr 1 tab PO DAILY 30 Days #30 03/23/18 [History Confirmed 06/05/19 Last Taken 10/25/18] insulin aspart U-100 100 unit/mL (3 mL) subcutaneous pen 12 unit SUB-Q TID ml 04/01/18 [History Confirmed 06/05/19 Last Taken 10/25/18] insulin glargine 100 unit/mL (3 mL) subcutaneous pen 60 unit SUB-Q HS ml 04/01/18 [History Confirmed 06/05/19 Last Taken 10/25/18] Magnesium Oxide [Mag-Oxide Magnesium] 400 mg PO BID 07/17/18 [History Confirmed 06/05/19 Last Taken 10/25/18] Omeprazole 20 mg PO BID 07/17/18 [History Confirmed 06/05/19 Last Taken 10/25/18] Ticagrelor [Brilinta] 90 mg PO BID 07/17/18 [History Confirmed 06/05/19 Last Taken 10/21/18] folic acid 1 mg tablet 1 mg PO DAILY #30 tab 08/16/18 [Rx Confirmed 06/05/19 Last Taken 10/25/18] ergocalciferol (vitamin D2) 50,000 unit capsule 50,000 unit PO Q14D 08/19/18 [History Confirmed 06/05/19 Last Taken 10/25/18] fenofibrate nanocrystallized 160 mg tablet 160 mg PO DAILY 09/20/18 [History Confirmed 06/05/19 Last Taken 10/25/18] Aspirin 81 mg PO DAILY 10/26/18 [History Confirmed 06/05/19 Last Taken Unknown] Calcium Carbonate/Vitamin D3 [Calcium 500 + Vit D Caplet] 2 tab PO BID 10/26/18 [History Confirmed 06/05/19 Last Taken Unknown] Ferrous Sulfate [Feosol] 325 mg PO QAC 10/26/18 [History Confirmed 06/05/19 Last Taken Unknown] Metoprolol Tartrate [Lopressor] 150 mg PO DAILY 10/26/18 [History Confirmed 06/05/19 Last Taken Unknown] atorvastatin 40 mg tablet 40 mg PO DAILY tab 03/22/19 [History Confirmed 06/05/19 Last Taken Unknown] chlorthalidone 25 mg tablet 25 mg PO DAILY #30 tab 03/23/19 [Rx Confirmed 06/05/19 Last Taken Unknown] spironolactone 50 mg tablet 25 mg PO QDAY #30 tab 03/23/19 [Rx Confirmed 06/05/19 Last Taken Unknown] Cephalexin [Keflex] 500 mg PO QID #40 cap 04/03/19 [Rx Confirmed 06/05/19 Last Taken Unknown] leflunomide 10 mg tablet 10 mg PO DAILY #90 tab 04/14/19 [Rx Confirmed 06/05/19 Last Taken Unknown] sodium bicarbonate 325 mg tablet 325 mg PO BID #60 tab 05/23/19 [Rx Confirmed 06/05/19 Last Taken Unknown] amlodipine 10 mg tablet See Rx Instructions .ROUTE .COMPLEX #30 tablet 06/01/19 [Rx Confirmed 06/05/19 Last Taken Unknown] Medical - DS: Hosp Hospital Course: Discharge diagnosis * Atrial fibrillation with RVR -clinically resolved. Pacemaker recalibrated by company healthcare sales representative 06/07. Rate now controlled around 80. Discharging to SNF * Dizziness and deconditioning/weakness. Transferring to SNF for continued posthospitalization PT OT * Generalized lymphedema/volume overload. Clinically improved with diuretics * History of DM type II continue basal prandial insulin/CC diet * Neuropathy stable on home dose Lyrica * Recent right shoulder ORIF - continue PT OT. Follow-up outpatient orthopedics in 1 to 2 weeks * Hypertension continue home dose beta-sanjay * Rheumatoid arthritis on leflunomide * Hyperlipidemia continue statin * History of CAD continue Brilinta/aspirin/statin/beta-sanjay * Full code Brief hospital course Mr. Marie is a 69 year old M with a complicated past medical history including A. 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 He was recovering well until he started noticing dizziness along with weakness lower extremity. He denies falls or associated vision change or vertigo or headache. Also denies shortness of breath. He presents to the ER for evaluation. Initial work-up was consistent with A. fib RVR with a sensed V paced excessively paced rhythm. Attempted magnetic deactivation without success. Subsequently pacemaker healthcare sales representative contacted and await arrival for deactivation/calibration. Cardiology was also consulted at [place] by ED who recommended initiation of diltiazem and admission for further management Subsequently hospitalist service is consulted At the time of evaluation patient is alert and oriented. Denies any active distress. He is currently on diltiazem drip. His heart rate around 110. He denies chest pain shortness of breath lightheadedness dizziness. He further denies diarrhea, dysuria, fever, chills or cough. 06/06-patient doing well. No overnight events. Improved dizziness lightheadedness. Rate controlled around 100 -110. No overnight fever chills. No concerns per nursing staff. 06/07-pacemaker reconfigured by company healthcare sales representative. Patient's rate now around 80s. Still feels weak and too deconditioned to be discharged. Continue PT OT/nutrition support. Anticipate discharge to SNF due to profound deconditioning and high risk recurrent falls and injuries. 06/08-patient seen in room. Patient was ready to be discharged today however complained of multiple shocks experience substernal area. Patient does not have a defibrillator however recently pacemaker malfunction was addressed. Patient since has had 3 episodes of shocks. Pacemaker healthcare sales representative will be consulted for interrogation for a possible malfunction. Hold discharge until further recommendations. Continue telemetry monitoring. No overnight fever chills. Creatinine gradually up trending to 1.5. Patient also complains of slight swelling in right shoulder pain currently in sling. 06/09-patient doing well. Feels a lot better. Denies fever chills. No concerns per staff. Ambulating and tolerating diet. No further episodes of A. fib RVR. Detailed discharge instruction as below Discharge diagnosis: . - Time Spent with Patient Total time spent providing and/or coordinating discharge services: Greater than 30 minutes Medical - DS: Exam - Constitutional Vitals: Vital Signs Temp Pulse Resp BP Pulse Ox 06/09/19 08:00 97.5 F 18 132/76 94 06/09/19 03:14 97.7 F 85 14 151/81 96 06/08/19 23:25 97.8 F 80 20 132/72 97 06/08/19 19:11 98.2 F 77 18 130/75 98 06/08/19 16:00 98.8 F 18 138/78 96 06/08/19 12:00 97.8 F 18 171/72 97 Intake and Output 06/08/19 06/09/19 06/09/19 21:59 05:59 13:59 Intake Total 240 600 240 Output Total 0167 085 1590 Balance -818 -125 -875 Intake: Oral 240 600 240 Output: Urine Catheter Amount 1025 Void Amount 1050 725 Other: Meal Dinner Breakfast Percent of Meal Consumed 100% 100% Feeding Ability Independent Independent Urine Appearance Clear Clear Urine Color Pale Bright Yellow Urine Odor Normal Normal # Bowel Movements 1 Weight 229 lb 8 oz Medical - DS: Data Labs on day of discharge: Labs from last 24 hours 06/09/19 06/09/19 06/09/19 04:30 04:30 04:30 WBC 4.8 RBC 3.61 L Hgb 10.1 L Hct 30.1 L MCV 83.4 MCH 27.9 MCHC 33.5 RDW 14.9 H Plt Count 226 MPV 8.3 Total Counted 100 Seg Neutrophils % 73 Band Neutrophils % Not Reportable Lymphocytes % 10 L Monocytes % (Manual) 12 Eosinophils % (Manual) 5 Platelet Estimate Normal RBC Morphology Abnorm A Polychromasia Few A Anisocytosis Few A PT 14.9 H INR 1.2 H Sodium 139 Potassium 3.6 Chloride 98 Carbon Dioxide 25 Anion Gap 16.0 BUN 27 H Creatinine 1.6 H GFR Calculation 43 Glucose 105 Uric Acid 6.8 Calcium 9.6 Phosphorus 3.9 Magnesium 1.5 L Total Bilirubin 0.4 Direct Bilirubin < 0.2 GGT 41 AST 27 ALT 17 Alkaline Phosphatase 60 Lactate Dehydrogenase 216 Total Protein 6.5 Albumin 3.4 Globulin 3.1 Albumin/Globulin Ratio 1.1 Triglycerides 251 H Medical - DS: A/P - Patient/Caregiver Discharge Instructions Activity: as per physical therapy, increase activity as tolerated Diet: Consistent Carbohydrate Additional Instructions: Follow-up PCP in 5 to 7 days follow-up orthopedics in 2 weeks continue aggressive posthospitalization rehab during PT OT Maintain fall risk Continue medications as advised below - Problem Maintenance (1) Atrial fibrillation with rapid ventricular response Status: Acute - Follow up Plan Follow up with: Arron Ramos MD [Primary Care Provider] - Disposition: Xfer SNF Care Plan Goals: This discharge packet is provided to you to help keep you informed about your care. We want to ensure you get everything you need when you go home. You will also be receiving a call from us in a few days to follow up with you and see how you are doing since your discharge. This gives us a chance to listen to any concerns you maybe experiencing since you were discharged or any additional needs you may have, as well as providing us feedback on your care experience. We strive to always provide excellent care and thank you for your feedback and for choosing [facility]. Prognosis: Good Rehab Potential: Fair I certify that the patient requires SNF services: Yes Overall status at discharge: patient is progressing back to baseline Medical - DS: Qual - VTE Deep Vein Thrombosis/Pulmonary Embolism Present on Admission: No
[2019-06-13] MEDS ORDERED: CYANOCOBALAMIN (VITAMIN B-12) 500 MCG TABLET PO SCH (09:00)
[2019-06-15] MEDS ORDERED: ERGOCALCIFEROL (VITAMIN D2) 50,000 UNIT CAPSULE PO SCH (09:00)
== END 2019-06-09 11:45 | DRG 310 ==
LOC: ED 10:05 → ICU 10:05 → OBSVTOIN 18:36 → ICU 18:51 → MEDSUR 06-06 11:15
PROVIDERS: ADMIT Internal Medicine; ATTEND Internal Medicine

== ENCOUNTER 2023-04-02 14:25 | Inpatient (IN) ==
[2023-04-02] MEDS ORDERED: 0.9 % SODIUM CHLORIDE 1,000 ML IV ONE ×2 (15:01→17:53)
[2023-04-02 15:28] LABS: POC Calcium, Ionized 1.01 (1.16-1.32); POC Creatinine 1.9 (0.6-1.2); POC Potassium 3.7 (3.3-5.1)
[2023-04-02 15:57] LABS: Basophils # (Auto) 0.02 K/mcL (0.00-0.30); Basophils % (Auto) 0.2 % (0.0-2.0); Eosinophils # (Auto) 0.16 K/mcL (0.00-0.70); Hematocrit 26.5 % (40.1-51.0); Hemoglobin 7.9 g/dL (13.7-17.5); Mean Cell Volume 79.6 fL (80.0-100.0); Mean Corpuscular HGB Conc 29.8 g/dL (31.0-36.0); Monocytes # (Auto) 0.53 K/mcL (0.10-0.90); Monocytes % (Auto) 6.6 % (1.0-12.0); Neutrophils % (Auto) 85.6 % (38.0-78.0); Platelet Count 168 K/mcL (140-440); RBC 3.33 M/mcL (4.63-6.08); Red Cell Distribution Width 19.6 % (11.5-14.5)
[2023-04-02 16:13] LABS: INR 3.4 (0.9-1.1); Prothrombin Time 35.5 sec (11.9-14.5)
[2023-04-02 16:14] LABS: ALT/SGPT 6 U/L (<40); AST/SGOT 8 U/L (<40); Albumin 2.9 gm/dL (3.2-5.2); Alkaline Phosphatase 98 U/L (39-117); Beta Hydroxybutyrate 0.08 mmol/L (<0.27); Bilirubin,Direct 0.3 mg/dL (<0.3); Bilirubin,Total 0.9 mg/dL (0.1-1.0); Globulin 3.6 gm/dL (2.2-3.7)
[2023-04-02 17:04] LABS: POC Calcium, Ionized 1.07 (1.16-1.32); POC Creatinine 1.9 (0.6-1.2); POC Potassium 3.7 (3.3-5.1)
[2023-04-02] MEDS ORDERED: 0.9 % SODIUM CHLORIDE 250 ML IV SCH (18:00)
[2023-04-02] MEDS ORDERED: FUROSEMIDE 100 MG/10 ML VIAL IV ONE (18:21)
[2023-04-02] MEDS ORDERED: acetaZOLAMIDE SOD 500 MG VIAL IV ONE ×2 (18:28→23:20)
[2023-04-02] MEDS ORDERED: ACETAMINOPHEN 325 MG TABLET PO PRN (20:27)
[2023-04-02] MEDS ORDERED: DEXTROSE 31 GM ORAL.SUSP PO PRN (20:27)
[2023-04-02] MEDS ORDERED: ONDANSETRON 4 MG/2 ML VIAL IV PRN (20:27)
[2023-04-02] MEDS ORDERED: DEXTROSE 50% 50 ML VIAL IV PRN (20:27)
[2023-04-02 21:00] LABS: Appearance,Urine HAZY (Clear); Bacteria,Urine FEW /hpf (0); Bilirubin,Urine Negative (Negative); Color,Urine YELLOW; Culture Indicated,Urine yes; Glucose,Urine (UA) Negative (Negative); Ketones,Urine Negative (Negative); Leukocyte Esterase,Urine 500 /uL (Negative); Mucus,Urine FEW /hpf; Nitrate,Urine Negative (Negative); Protein,Urine Negative (Negative); Specific Gravity,Urine 1.005 (1.000-1.035); Urine Blood >=1.0 mg/dL (Negative); Urine Hyaline Cast 7 /lph (0-2); Urine RBC 6 /hpf (0-3); Urine Renal Epithelial Cells < 1 /hpf (0-2); Urine Squamous Epithelial Cell 1 /hpf (0-4); Urine WBC 70 /hpf (0-4); Urobilinogen,Urine Negative
[2023-04-02 22:24] LABS: Hemoglobin A1C 6.1 % Hgb (4.0-6.0)
[2023-04-02 22:42] LABS: Creatinine, Spot Urine 31.4 mg/dL (39.0-259.0); Pro:Crea Ratio 0.16 (<0.20)
[2023-04-02] MEDS: INSULIN GLARGINE, HUMAN 1 UNIT/0.01 ML SQ SCH (23:36)
[2023-04-02] MEDS: INSULIN LISPRO 1 UNIT/0.01 ML UNIT SQ SCH (23:38)
[2023-04-02] MEDS: DOCUSATE SODIUM 100 MG CAPSULE PO SCH (23:39)
[2023-04-02] MEDS: SENNOSIDES 1 TABLET PO SCH (23:39)
[2023-04-02] MEDS: 0.9 % SODIUM CHLORIDE 1,000 ML IV SCH (23:40)
[2023-04-02] MEDS: 0.9 % SODIUM CHLORIDE 10 ML SYRINGE IV SCH (23:47)
[2023-04-03 06:18] LABS: Basophils # (Auto) 0.04 K/mcL (0.00-0.30); Basophils % (Auto) 0.5 % (0.0-2.0); Eosinophils # (Auto) 0.22 K/mcL (0.00-0.70); Eosinophils % (Auto) 2.8 % (0.0-7.0); Hematocrit 29.5 % (40.1-51.0); Hemoglobin 8.4 g/dL (13.7-17.5); Lymphocytes # (Auto) 0.54 K/mcL (1.50-4.80); Mean Cell Volume 83.6 fL (80.0-100.0); Mean Corpuscular HGB Conc 28.5 g/dL (31.0-36.0); Mean Platelet Volume 10.9 fL (8.8-12.5); Monocytes # (Auto) 0.52 K/mcL (0.10-0.90); Monocytes % (Auto) 6.7 % (1.0-12.0); Neutrophils % (Auto) 82.4 % (38.0-78.0); Platelet Count 173 K/mcL (140-440); RBC 3.53 M/mcL (4.63-6.08); Red Cell Distribution Width 19.7 % (11.5-14.5); WBC 7.7 K/mcL (4.5-11.0)
[2023-04-03 06:44] LABS: Blood Urea Nitrogen 64 mg/dL (8-23); Calcium 8.9 mg/dL (8.6-10.4); Carbon Dioxide 27 mmol/L (22-30); Chloride 95 mmol/L (96-108); Glomerular Filtration Rate 46; Glucose 141 mg/dL (70-105); Iron 15 ug/dL (61-157); TIBC Calculation 235 ug/dl (228-428); Transferrin % Saturation 6 % (20-50)
[2023-04-03] MEDS ORDERED: POTASSIUM CHLORIDE 20 MEQ TABLET PO ONE ×3 (06:45→14:00)
[2023-04-03 06:50] LABS: Ferritin 147.7 ng/mL (30.0-400.0)
[2023-04-03] MEDS: 0.9 % SODIUM CHLORIDE 10 ML SYRINGE IV SCH ×3 (06:52→23:47)
[2023-04-03 07:27] LABS: INR 1.9 (0.9-1.1); Prothrombin Time 22.1 sec (11.9-14.5)
[2023-04-03] MEDS: FUROSEMIDE 100 MG/10 ML VIAL IV SCH ×2 (07:33→15:38)
[2023-04-03] MEDS: INSULIN LISPRO 1 UNIT/0.01 ML UNIT SQ SCH ×4 (07:34→20:11)
[2023-04-03] MEDS: DOCUSATE SODIUM 100 MG CAPSULE PO SCH ×2 (08:40→20:13)
[2023-04-03] MEDS: ASPIRIN 81 MG TAB.CHEW CHEWED SCH (08:40)
[2023-04-03] MEDS: acetaZOLAMIDE SOD 500 MG VIAL IV SCH (12:11)
[2023-04-03] MEDS: RIVAROXABAN 20 MG TABLET PO SCH (12:12)
[2023-04-03] MEDS: INSULIN GLARGINE, HUMAN 1 UNIT/0.01 ML SQ SCH (20:11)
[2023-04-03] MEDS: SENNOSIDES 1 TABLET PO SCH (20:13)
[2023-04-03] MEDS: 0.9 % SODIUM CHLORIDE 1,000 ML IV SCH (20:19)
[2023-04-04 06:26] LABS: Basophils # (Auto) 0.03 K/mcL (0.00-0.30); Basophils % (Auto) 0.5 % (0.0-2.0); Eosinophils # (Auto) 0.15 K/mcL (0.00-0.70); Eosinophils % (Auto) 2.6 % (0.0-7.0); Hematocrit 27.9 % (40.1-51.0); Hemoglobin 7.9 g/dL (13.7-17.5); Lymphocytes # (Auto) 0.42 K/mcL (1.50-4.80); Lymphocytes % (Auto) 7.3 % (15.5-49.0); Mean Cell Volume 82.1 fL (80.0-100.0); Mean Corpuscular HGB Conc 28.3 g/dL (31.0-36.0); Mean Platelet Volume 11.1 fL (8.8-12.5); Monocytes # (Auto) 0.66 K/mcL (0.10-0.90); Monocytes % (Auto) 11.5 % (1.0-12.0); Neutrophils % (Auto) 77.4 % (38.0-78.0); Platelet Count 162 K/mcL (140-440); Red Cell Distribution Width 19.8 % (11.5-14.5); WBC 5.7 K/mcL (4.5-11.0)
[2023-04-04 06:35] LABS: Prothrombin Time 23.5 sec (11.9-14.5)
[2023-04-04 06:54] LABS: Blood Urea Nitrogen 63 mg/dL (8-23); Carbon Dioxide 29 mmol/L (22-30); Chloride 95 mmol/L (96-108); Glomerular Filtration Rate 46; Glucose 172 mg/dL (70-105)
[2023-04-04] MEDS: 0.9 % SODIUM CHLORIDE 10 ML SYRINGE IV SCH ×3 (07:21→20:49)
[2023-04-04] MEDS: INSULIN LISPRO 1 UNIT/0.01 ML UNIT SQ SCH ×6 (07:32→20:53)
[2023-04-04] MEDS: FUROSEMIDE 100 MG/10 ML VIAL IV SCH ×2 (07:33→16:27)
[2023-04-04] MEDS ORDERED: POTASSIUM CHLORIDE 20 MEQ TABLET PO ONE (07:37)
[2023-04-04] MEDS: ASPIRIN 81 MG TAB.CHEW CHEWED SCH (08:04)
[2023-04-04] MEDS: DOCUSATE SODIUM 100 MG CAPSULE PO SCH ×2 (08:04→20:49)
[2023-04-04] MEDS: RIVAROXABAN 20 MG TABLET PO SCH (08:04)
[2023-04-04] MEDS: acetaZOLAMIDE SOD 500 MG VIAL IV SCH (08:43)
[2023-04-04] MEDS ORDERED: PNEUMOCOCCAL 23-VAL P-SAC VAC 0.5 ML SYRINGE IM ONE (10:00)
[2023-04-04] MEDS: SENNOSIDES 1 TABLET PO SCH (20:48)
[2023-04-04] MEDS: INSULIN GLARGINE, HUMAN 1 UNIT/0.01 ML SQ SCH (20:51)
[2023-04-05] MEDS: 0.9 % SODIUM CHLORIDE 10 ML SYRINGE IV SCH ×3 (05:15→20:34)
[2023-04-05 06:26] LABS: Basophils # (Auto) 0.03 K/mcL (0.00-0.30); Basophils % (Auto) 0.6 % (0.0-2.0); Eosinophils # (Auto) 0.19 K/mcL (0.00-0.70); Eosinophils % (Auto) 3.8 % (0.0-7.0); Hematocrit 30.4 % (40.1-51.0); Hemoglobin 8.7 g/dL (13.7-17.5); Lymphocytes # (Auto) 0.42 K/mcL (1.50-4.80); Lymphocytes % (Auto) 8.4 % (15.5-49.0); Mean Cell Volume 82.2 fL (80.0-100.0); Mean Corpuscular HGB Conc 28.6 g/dL (31.0-36.0); Mean Platelet Volume 10.5 fL (8.8-12.5); Monocytes # (Auto) 0.72 K/mcL (0.10-0.90); Monocytes % (Auto) 14.4 % (1.0-12.0); Neutrophils % (Auto) 72.4 % (38.0-78.0); Platelet Count 160 K/mcL (140-440); Red Cell Distribution Width 19.5 % (11.5-14.5)
[2023-04-05 07:18] LABS: Blood Urea Nitrogen 58 mg/dL (8-23); Calcium 8.9 mg/dL (8.6-10.4); Carbon Dioxide 28 mmol/L (22-30); Chloride 91 mmol/L (96-108); Glomerular Filtration Rate 49; Glucose 185 mg/dL (70-105)
[2023-04-05] MEDS: INSULIN LISPRO 1 UNIT/0.01 ML UNIT SQ SCH ×7 (07:43→20:33)
[2023-04-05] MEDS: FUROSEMIDE 100 MG/10 ML VIAL IV SCH (07:44)
[2023-04-05] MEDS: acetaZOLAMIDE SOD 500 MG VIAL IV SCH (08:42)
[2023-04-05] MEDS: ASPIRIN 81 MG TAB.CHEW CHEWED SCH (08:43)
[2023-04-05] MEDS: RIVAROXABAN 20 MG TABLET PO SCH (08:43)
[2023-04-05] MEDS: POTASSIUM CHLORIDE 20 MEQ TABLET PO SCH ×2 (08:43→17:01)
[2023-04-05] MEDS: DOCUSATE SODIUM 100 MG CAPSULE PO SCH ×2 (08:43→19:57)
[2023-04-05 13:55] LABS: Albumin 2.9 gm/dL (3.2-5.2); Uric Acid 15.6 mg/dL (2.5-8.0)
[2023-04-05] MEDS ORDERED: ALBUMIN HUMAN 12.5 GM/50 ML VIAL IV ONE (16:00)
[2023-04-05] MEDS: SENNOSIDES 1 TABLET PO SCH (19:57)
[2023-04-05] MEDS: INSULIN GLARGINE, HUMAN 1 UNIT/0.01 ML SQ SCH (20:34)
[2023-04-06] MEDS: 0.9 % SODIUM CHLORIDE 10 ML SYRINGE IV SCH (05:15)
[2023-04-06 07:09] LABS: ALT/SGPT 7 U/L (<40); AST/SGOT 11 U/L (<40); Albumin 2.9 gm/dL (3.2-5.2); Albumin/Globulin Ratio 0.7 (1.0-2.3); Alkaline Phosphatase 97 U/L (39-117); Bilirubin,Direct 0.2 mg/dL (<0.3); Bilirubin,Total 0.8 mg/dL (0.1-1.0); Blood Urea Nitrogen 48 mg/dL (8-23); Carbon Dioxide 27 mmol/L (22-30); Chloride 95 mmol/L (96-108); Glomerular Filtration Rate 54; Glucose 154 mg/dL (70-105); Lactate Dehydrogenase 150 U/L (135-225); Phosphorous 4.1 mg/dL (2.5-4.5); Triglycerides 141 mg/dL (<150); Uric Acid 16.5 mg/dL (2.5-8.0)
[2023-04-06] MEDS: POTASSIUM CHLORIDE 20 MEQ TABLET PO SCH (07:48)
[2023-04-06] MEDS: INSULIN LISPRO 1 UNIT/0.01 ML UNIT SQ SCH ×4 (07:49→11:34)
[2023-04-06] MEDS: DOCUSATE SODIUM 100 MG CAPSULE PO SCH (08:59)
[2023-04-06] MEDS: ASPIRIN 81 MG TAB.CHEW CHEWED SCH (08:59)
[2023-04-06] MEDS: RIVAROXABAN 20 MG TABLET PO SCH (08:59)
== END 2023-04-06 12:05 | DRG 683 ==
LOC: ED 14:25 → MEDSUR 14:25
PROVIDERS: ADMIT Internal Medicine; ATTEND Internal Medicine

== ENCOUNTER 2023-10-05 20:02 | Inpatient (IN) ==
[2023-10-05 21:07] LABS: Hematocrit 35.8 % (40.1-51.0); Mean Corpuscular HGB Conc 30.7 g/dL (31.0-36.0); Mean Platelet Volume 11.4 fL (8.8-12.5); Platelet Count 148 K/mcL (140-440); RBC 4.21 M/mcL (4.63-6.08); Red Cell Distribution Width 17.5 % (11.5-14.5); WBC 4.7 K/mcL (4.5-11.0)
[2023-10-05 21:23] LABS: Creatine Kinase 46 U/L (24-195); Creatine Kinase MB 1.6 ng/mL (<6.7)
[2023-10-05 21:25] LABS: Appearance,Urine Clear (Clear); Bacteria,Urine 0 /hpf (0); Bilirubin,Urine Negative (Negative); Color,Urine Yellow; Culture Indicated,Urine No; Glucose,Urine (UA) Negative (Negative); Ketones,Urine Negative (Negative); Leukocyte Esterase,Urine Negative /uL (Negative); Nitrate,Urine Negative (Negative); Protein,Urine Negative (Negative); Specific Gravity,Urine 1.015 (1.000-1.035); Urine Blood Negative ery/mcL (Negative); Urine Hyaline Cast 4 /lph (0-2); Urine RBC 0 /hpf (0-3); Urine Squamous Epithelial Cell 0 /hpf (0-4); Urine WBC 0 /hpf (0-4); Urobilinogen,Urine Normal
[2023-10-05 21:29] LABS: Lymphocytes % 5 % (15-49); Monocytes % (Manual) 9 % (1-12); Platelet Estimate NORMAL (Normal); RBC Morphology NORMAL (Normal); Segmented Neutrophils % 86 % (38-78)
[2023-10-05 21:30] LABS: ALT/SGPT < 5 U/L (<40); AST/SGOT 18 U/L (<40); Albumin 3.7 gm/dL (3.2-5.2); Albumin/Globulin Ratio 1.1 (1.0-2.3); Alkaline Phosphatase 127 U/L (39-117); Bilirubin,Total 0.9 mg/dL (0.1-1.0); Blood Urea Nitrogen 46 mg/dL (8-23); Calcium 8.7 mg/dL (8.6-10.4); Carbon Dioxide 22 mmol/L (22-30); Chloride 100 mmol/L (96-108); Globulin 3.4 gm/dL (2.2-3.7); Glomerular Filtration Rate 42; Glucose 149 mg/dL (70-105); Thyroid Stimulating Hormone 3.24 uIU/mL (0.27-5.01)
[2023-10-05] MEDS: FUROSEMIDE 40 MG/4 ML VIAL IV ONE (22:02)
[2023-10-05 22:29] LABS: Free T4 (Free Thyroxine) 1.59 ng/dL (0.93-1.70)
[2023-10-05] MEDS ORDERED: ONDANSETRON 4 MG/2 ML VIAL IV PRN (23:22)
[2023-10-06] MEDS: ACETAMINOPHEN 325 MG TABLET PO PRN (03:16)
[2023-10-06] MEDS: ACETAMINOPHEN 325 MG TABLET PO ONE (04:20)
[2023-10-06] MEDS: 0.9 % SODIUM CHLORIDE 10 ML SYRINGE IV SCH (05:31)
[2023-10-06 05:53] LABS: Basophils # (Auto) 0.02 K/mcL (0.00-0.30); Basophils % (Auto) 0.6 % (0.0-2.0); Eosinophils # (Auto) 0.01 K/mcL (0.00-0.70); Eosinophils % (Auto) 0.3 % (0.0-7.0); Hematocrit 33.9 % (40.1-51.0); Hemoglobin 10.5 g/dL (13.7-17.5); Lymphocytes # (Auto) 0.38 K/mcL (1.50-4.80); Lymphocytes % (Auto) 10.6 % (15.5-49.0); Mean Cell Volume 85.4 fL (80.0-100.0); Monocytes # (Auto) 0.35 K/mcL (0.10-0.90); Monocytes % (Auto) 9.7 % (1.0-12.0); Neutrophils % (Auto) 78.5 % (38.0-78.0); Platelet Count 126 K/mcL (140-440); RBC 3.97 M/mcL (4.63-6.08); Red Cell Distribution Width 17.5 % (11.5-14.5); WBC 3.6 K/mcL (4.5-11.0)
[2023-10-06 06:19] LABS: ALT/SGPT < 5 U/L (<40); AST/SGOT 17 U/L (<40); Albumin 3.1 gm/dL (3.2-5.2); Alkaline Phosphatase 107 U/L (39-117); Bilirubin,Direct 0.4 mg/dL (<0.3); Bilirubin,Total 0.9 mg/dL (0.1-1.0); Blood Urea Nitrogen 46 mg/dL (8-23); Calcium 8.4 mg/dL (8.6-10.4); Carbon Dioxide 21 mmol/L (22-30); Chloride 103 mmol/L (96-108); Globulin 3.2 gm/dL (2.2-3.7); Glomerular Filtration Rate 45; Glucose 78 mg/dL (70-105); Lactate Dehydrogenase 143 U/L (135-225); Phosphorous 3.5 mg/dL (2.5-4.5); Triglycerides 47 mg/dL (<150); Uric Acid 14.6 mg/dL (2.5-8.0)
[2023-10-06] MEDS ORDERED: DEXTROSE 31 GM ORAL.SUSP PO PRN (06:30)
[2023-10-06] MEDS ORDERED: DEXTROSE 50% 50 ML VIAL IV PRN (06:30)
[2023-10-06] MEDS: PANTOPRAZOLE 40 MG TABLET PO SCH (07:06)
[2023-10-06] MEDS: POTASSIUM CHLORIDE 20 MEQ TABLET PO SCH (07:06)
[2023-10-06] MEDS: LACTATED RINGERS 500 ML IV ONE (07:44)
[2023-10-06] MEDS ORDERED: FUROSEMIDE 40 MG/4 ML VIAL IV SCH (08:00)
[2023-10-06] MEDS: INSULIN LISPRO 1 UNIT/0.01 ML UNIT SQ SCH ×2 (08:32→11:41)
[2023-10-06] MEDS ORDERED: METOPROLOL SUCCINATE 50 MG TAB.XL.24H PO SCH (09:00)
[2023-10-06] MEDS ORDERED: SPIRONOLACTONE 25 MG TABLET PO SCH (09:00)
[2023-10-06] MEDS: ATORVASTATIN 10 MG TABLET PO SCH (09:01)
[2023-10-06] MEDS: FERROUS SULFATE 325 MG TABLET PO SCH (09:01)
[2023-10-06] MEDS: RIVAROXABAN 15 MG TABLET PO SCH (09:01)
[2023-10-06] MEDS: DOCUSATE SODIUM 100 MG CAPSULE PO SCH (09:01)
[2023-10-06] MEDS: PREGABALIN 75 MG CAPSULE PO SCH (09:01)
[2023-10-06] MEDS: METOPROLOL SUCCINATE 50 MG TAB.XL.24H PO SCH (09:02)
[2023-10-06 09:05] LABS: Estimated Average Glucose(eAG) 163 mg/dL; Hemoglobin A1C 7.3 % Hgb (4.0-6.0)
[2023-10-06] MEDS: LEFLUNOMIDE 20 MG TABLET PO SCH (10:46)
[2023-10-06] MEDS: ALBUTEROL SULFATE 2.5 MG/3 ML NEBULIZER NEB PRN (10:53)
[2023-10-06] MEDS: FUROSEMIDE 100 MG/10 ML VIAL IV SCH (11:38)
[2023-10-06] MEDS: ASPIRIN 81 MG TAB.CHEW CHEWED SCH (11:41)
[2023-10-06] MEDS: FUROSEMIDE 100 MG/10 ML VIAL IV ONE ×2 (19:48→19:54)
[2023-10-06] MEDS: SENNOSIDES 1 TABLET PO SCH (20:55)
[2023-10-06] MEDS: TAMSULOSIN 0.4 MG CAPSULE PO SCH (20:55)
[2023-10-06] MEDS ORDERED: INSULIN GLARGINE, HUMAN 1 UNIT/0.01 ML SQ SCH (21:00)
[2023-10-07 07:16] LABS: Basophils # (Auto) 0.02 K/mcL (0.00-0.30); Basophils % (Auto) 0.6 % (0.0-2.0); Eosinophils # (Auto) 0.02 K/mcL (0.00-0.70); Eosinophils % (Auto) 0.6 % (0.0-7.0); Hematocrit 35.7 % (40.1-51.0); Hemoglobin 10.8 g/dL (13.7-17.5); Lymphocytes # (Auto) 0.47 K/mcL (1.50-4.80); Lymphocytes % (Auto) 14.1 % (15.5-49.0); Mean Cell Volume 85.4 fL (80.0-100.0); Mean Corpuscular HGB Conc 30.3 g/dL (31.0-36.0); Mean Platelet Volume 11.4 fL (8.8-12.5); Monocytes # (Auto) 0.29 K/mcL (0.10-0.90); Monocytes % (Auto) 8.7 % (1.0-12.0); Neutrophils % (Auto) 75.7 % (38.0-78.0); Platelet Count 132 K/mcL (140-440); RBC 4.18 M/mcL (4.63-6.08); Red Cell Distribution Width 17.3 % (11.5-14.5); WBC 3.3 K/mcL (4.5-11.0)
[2023-10-07 08:04] LABS: ALT/SGPT < 5 U/L (<40); AST/SGOT 19 U/L (<40); Albumin 3.1 gm/dL (3.2-5.2); Albumin/Globulin Ratio 0.9 (1.0-2.3); Alkaline Phosphatase 106 U/L (39-117); Bilirubin,Direct 0.3 mg/dL (<0.3); Bilirubin,Total 0.7 mg/dL (0.1-1.0); Blood Urea Nitrogen 43 mg/dL (8-23); Calcium 8.7 mg/dL (8.6-10.4); Carbon Dioxide 23 mmol/L (22-30); Chloride 101 mmol/L (96-108); Globulin 3.5 gm/dL (2.2-3.7); Glomerular Filtration Rate 49; Glucose 78 mg/dL (70-105); Lactate Dehydrogenase 160 U/L (135-225); Phosphorous 3.5 mg/dL (2.5-4.5); Triglycerides 68 mg/dL (<150); Uric Acid 14.7 mg/dL (2.5-8.0)
[2023-10-07] MEDS: FUROSEMIDE 100 MG/10 ML VIAL IV SCH ×2 (08:52→09:18)
[2023-10-07] MEDS ORDERED: ASPIRIN 81 MG TAB.CHEW CHEWED SCH (09:00)
[2023-10-07] MEDS: ASPIRIN 81 MG TAB.CHEW PO SCH (09:52)
[2023-10-07] MEDS: AMOXICILLIN/POTASSIUM CLAV 875 MG TABLET PO SCH (09:52)
[2023-10-07] MEDS: DOXYCYCLINE HYCLATE 100 MG TABLET.ORL PO SCH (09:54)
[2023-10-07] MEDS: methylPREDNISolone SOD SUCC 125 MG/2 ML VIAL IV SCH (10:13)
[2023-10-07] MEDS: PREGABALIN 25 MG CAPSULE PO SCH (14:38)
[2023-10-07] MEDS: INSULIN LISPRO 1 UNIT/0.01 ML UNIT SQ SCH (17:13)
[2023-10-07] MEDS: IPRATROPIUM/ALBUTEROL 3 ML AMPUL.NEB NEB SCH (18:10)
[2023-10-08 06:35] LABS: Basophils # (Auto) 0.02 K/mcL (0.00-0.30); Basophils % (Auto) 0.9 % (0.0-2.0); Eosinophils # (Auto) 0 K/mcL (0.00-0.70); Eosinophils % (Auto) 0 % (0.0-7.0); Hematocrit 35.3 % (40.1-51.0); Hemoglobin 11.1 g/dL (13.7-17.5); Lymphocytes # (Auto) 0.21 K/mcL (1.50-4.80); Lymphocytes % (Auto) 9.3 % (15.5-49.0); Mean Cell Volume 83.1 fL (80.0-100.0); Mean Corpuscular HGB Conc 31.4 g/dL (31.0-36.0); Mean Platelet Volume 11.6 fL (8.8-12.5); Monocytes # (Auto) 0.27 K/mcL (0.10-0.90); Monocytes % (Auto) 11.9 % (1.0-12.0); Neutrophils % (Auto) 77.9 % (38.0-78.0); Platelet Count 123 K/mcL (140-440); RBC 4.25 M/mcL (4.63-6.08); Red Cell Distribution Width 16.6 % (11.5-14.5); WBC 2.3 K/mcL (4.5-11.0)
[2023-10-08] MEDS: predniSONE 20 MG TABLET PO SCH (07:31)
[2023-10-08 08:02] LABS: Albumin 3.1 gm/dL (3.2-5.2); Blood Urea Nitrogen 49 mg/dL (8-23); Calcium 8.6 mg/dL (8.6-10.4); Carbon Dioxide 23 mmol/L (22-30); Chloride 100 mmol/L (96-108); Glomerular Filtration Rate 59; Glucose 274 mg/dL (70-105); Phosphorous 3.7 mg/dL (2.5-4.5)
[2023-10-08] MEDS: INSULIN GLARGINE, HUMAN 1 UNIT/0.01 ML SQ SCH (08:36)
[2023-10-08] MEDS: FUROSEMIDE 100 MG/10 ML VIAL IV SCH (08:36)
[2023-10-09 07:19] LABS: ALT/SGPT < 5 U/L (<40); AST/SGOT 15 U/L (<40); Albumin 3.3 gm/dL (3.2-5.2); Alkaline Phosphatase 105 U/L (39-117); Basophils # (Auto) 0.01 K/mcL (0.00-0.30); Basophils % (Auto) 0.2 % (0.0-2.0); Bilirubin,Direct < 0.2 mg/dL (0-0.3); Bilirubin,Total 0.4 mg/dL (0.1-1.0); Blood Urea Nitrogen 58 mg/dL (8-23); Calcium 8.8 mg/dL (8.6-10.4); Carbon Dioxide 23 mmol/L (22-30); Chloride 98 mmol/L (96-108); Eosinophils # (Auto) 0 K/mcL (0.00-0.70); Eosinophils % (Auto) 0 % (0.0-7.0); Globulin 3.3 gm/dL (2.2-3.7); Glomerular Filtration Rate 59; Glucose 274 mg/dL (70-105); Hematocrit 36.8 % (40.1-51.0); Hemoglobin 11.6 g/dL (13.7-17.5); Lactate Dehydrogenase 146 U/L (135-225); Lymphocytes # (Auto) 0.47 K/mcL (1.50-4.80); Lymphocytes % (Auto) 8.6 % (15.5-49.0); Mean Cell Volume 82.5 fL (80.0-100.0); Mean Corpuscular HGB Conc 31.5 g/dL (31.0-36.0); Mean Platelet Volume 11.7 fL (8.8-12.5); Monocytes # (Auto) 0.44 K/mcL (0.10-0.90); Phosphorous 2.7 mg/dL (2.5-4.5); Platelet Count 125 K/mcL (140-440); RBC 4.46 M/mcL (4.63-6.08); Red Cell Distribution Width 16.4 % (11.5-14.5); Triglycerides 137 mg/dL (<150); Uric Acid 14.4 mg/dL (2.5-8.0); WBC 5.5 K/mcL (4.5-11.0)
[2023-10-09] MEDS: INSULIN GLARGINE, HUMAN 1 UNIT/0.01 ML SQ SCH (08:57)
[2023-10-10 07:00] LABS: Blood Urea Nitrogen 54 mg/dL (8-23); Calcium 8.9 mg/dL (8.6-10.4); Carbon Dioxide 23 mmol/L (22-30); Chloride 101 mmol/L (96-108); Glomerular Filtration Rate 66; Glucose 193 mg/dL (70-105)
[2023-10-10] MEDS: INSULIN GLARGINE, HUMAN 1 UNIT/0.01 ML SQ SCH (09:10)
[2023-10-10] MEDS: LISINOPRIL 2.5 MG TABLET PO SCH (09:11)
[2023-10-11] MEDS: FUROSEMIDE 40 MG TABLET PO SCH (07:27)
== END 2023-10-11 14:22 | disposition home or self-care (01) | DRG 193 ==
LOC: MEDSUR 20:02 → ED 20:02 → MEDSUR 23:13
PROVIDERS: ADMIT Internal Medicine; ATTEND Internal Medicine

== ENCOUNTER 2024-03-31 19:35 | Inpatient (IN) ==
[2024-03-31 20:40] LABS: Appearance,Urine Clear (Clear); Bilirubin,Urine Negative (Negative); Color,Urine Yellow; Glucose,Urine (UA) Negative (Negative); Ketones,Urine Negative (Negative); Leukocyte Esterase,Urine Negative /uL (Negative); Nitrate,Urine Negative (Negative); PH,Urine 5.5 (5.0-9.0); Protein,Urine Negative (Negative); Urine Blood Negative ery/mcL (Negative); Urine Hyaline Cast 4 /lph (0-2); Urine RBC 0 /hpf (0-3); Urine Squamous Epithelial Cell 0 /hpf (0-4); Urine WBC 0 /hpf (0-4); Urobilinogen,Urine Normal
[2024-03-31 20:49] LABS: Basophils # (Auto) 0.03 K/mcL (0.00-0.30); Basophils % (Auto) 0.4 % (0.0-2.0); Eosinophils % (Auto) 2.8 % (0.0-7.0); Hematocrit 31.7 % (40.1-51.0); Hemoglobin 10.3 g/dL (13.7-17.5); Lymphocytes # (Auto) 0.43 K/mcL (1.50-4.80); Lymphocytes % (Auto) 5.9 % (15.5-49.0); Mean Cell Volume 83.9 fL (80.0-100.0); Mean Corpuscular HGB Conc 32.5 g/dL (31.0-36.0); Mean Platelet Volume 11.2 fL (8.8-12.5); Monocytes % (Auto) 8.3 % (1.0-12.0); Neutrophils % (Auto) 82.3 % (38.0-78.0); Platelet Count 163 K/mcL (140-440); RBC 3.78 M/mcL (4.63-6.08); Red Cell Distribution Width 15.1 % (11.5-14.5); WBC 7.3 K/mcL (4.5-11.0)
[2024-03-31 21:21] LABS: Thyroid Stimulating Hormone 3.19 uIU/mL (0.27-5.01)
[2024-03-31 21:28] LABS: ALT/SGPT < 5 U/L (0-40); AST/SGOT 15 U/L (<40); Albumin 3.1 gm/dL (3.2-5.2); Albumin/Globulin Ratio 1.1 (1.0-2.3); Alkaline Phosphatase 88 U/L (39-117); Bilirubin,Total 0.7 mg/dL (0.1-1.0); Blood Urea Nitrogen 55 mg/dL (8-23); Calcium 8.6 mg/dL (8.6-10.4); Carbon Dioxide 23 mmol/L (22-30); Chloride 101 mmol/L (96-108); Globulin 2.8 gm/dL (2.2-3.7); Glomerular Filtration Rate 45; Glucose 182 mg/dL (70-105); Potassium 3.9 mmol/L (3.3-5.1); Sodium 136 mmol/L (133-145)
[2024-03-31] MEDS: FUROSEMIDE 100 MG/10 ML VIAL IV ONE ×2 (23:17)
[2024-03-31] MEDS ORDERED: DEXTROSE 31 GM ORAL.SUSP PO PRN (23:55)
[2024-03-31] MEDS ORDERED: MAG HYDROX/AL HYDROX/SIMETH 30 ML ORAL.SUSP PO PRN (23:55)
[2024-03-31] MEDS ORDERED: DEXTROSE 50% 50 ML VIAL IV PRN (23:55)
[2024-03-31] MEDS ORDERED: ONDANSETRON 4 MG/2 ML VIAL IV PRN (23:55)
[2024-03-31] MEDS ORDERED: IPRATROPIUM/ALBUTEROL 3 ML AMPUL.NEB NEB PRN (23:55)
[2024-03-31] MEDS ORDERED: SENNOSIDES 1 TABLET PO PRN (23:55)
[2024-03-31] MEDS ORDERED: POLYETHYLENE GLYCOL 3350 17 GM PACKET PO PRN (23:55)
[2024-04-01] MEDS: 0.9 % SODIUM CHLORIDE 10 ML SYRINGE IV SCH (05:34)
[2024-04-01] MEDS: FUROSEMIDE 40 MG/4 ML VIAL IV SCH (07:12)
[2024-04-01] MEDS: INSULIN LISPRO 1 UNIT/0.01 ML UNIT SQ SCH ×2 (08:02→18:18)
[2024-04-01 08:09] LABS: ALT/SGPT < 5 U/L (<40); AST/SGOT 15 U/L (<40); Albumin 3.1 gm/dL (3.2-5.2); Albumin/Globulin Ratio 1.1 (1.0-2.3); Alkaline Phosphatase 85 U/L (39-117); Bilirubin,Direct 0.4 mg/dL (<0.3); Blood Urea Nitrogen 51 mg/dL (8-23); Calcium 8.9 mg/dL (8.6-10.4); Carbon Dioxide 24 mmol/L (22-30); Chloride 103 mmol/L (96-108); Globulin 2.8 gm/dL (2.2-3.7); Glomerular Filtration Rate 49; Glucose 183 mg/dL (70-105); Lactate Dehydrogenase 140 U/L (135-225); Phosphorous 3.4 mg/dL (2.5-4.5); Potassium 3.7 mmol/L (3.3-5.1); Sodium 141 mmol/L (133-145); Triglycerides 109 mg/dL (<150)
[2024-04-01] MEDS: PANTOPRAZOLE 40 MG TABLET PO SCH (18:18)
[2024-04-01] MEDS: METOPROLOL SUCCINATE 50 MG TAB.XL.24H PO SCH (21:08)
[2024-04-01] MEDS: TAMSULOSIN 0.4 MG CAPSULE PO SCH (21:08)
[2024-04-01] MEDS: INSULIN GLARGINE, HUMAN 1 UNIT/0.01 ML SQ SCH (21:09)
[2024-04-01] MEDS: PREGABALIN 75 MG CAPSULE PO SCH (21:28)
[2024-04-02 07:22] LABS: ALT/SGPT < 5 U/L (<40); AST/SGOT 12 U/L (<40); Albumin 3.1 gm/dL (3.2-5.2); Alkaline Phosphatase 82 U/L (39-117); Bilirubin,Direct 0.3 mg/dL (<0.3); Bilirubin,Total 0.8 mg/dL (0.1-1.0); Blood Urea Nitrogen 45 mg/dL (8-23); Calcium 8.5 mg/dL (8.6-10.4); Carbon Dioxide 27 mmol/L (22-30); Chloride 100 mmol/L (96-108); Globulin 3.1 gm/dL (2.2-3.7); Glomerular Filtration Rate 59; Glucose 115 mg/dL (70-105); Lactate Dehydrogenase 128 U/L (135-225); Phosphorous 3.2 mg/dL (2.5-4.5); Potassium 3.5 mmol/L (3.3-5.1); Sodium 138 mmol/L (133-145); Triglycerides 97 mg/dL (<150); Uric Acid 13.2 mg/dL (2.5-8.0)
[2024-04-02 07:59] LABS: Basophils # (Auto) 0.02 K/mcL (0.00-0.30); Basophils % (Auto) 0.3 % (0.0-2.0); Eosinophils # (Auto) 0.18 K/mcL (0.00-0.70); Eosinophils % (Auto) 2.7 % (0.0-7.0); Hematocrit 34.6 % (40.1-51.0); Hemoglobin 11.1 g/dL (13.7-17.5); Lymphocytes # (Auto) 0.56 K/mcL (1.50-4.80); Lymphocytes % (Auto) 8.5 % (15.5-49.0); Mean Cell Volume 85.2 fL (80.0-100.0); Mean Corpuscular HGB Conc 32.1 g/dL (31.0-36.0); Mean Platelet Volume 11.5 fL (8.8-12.5); Monocytes # (Auto) 0.54 K/mcL (0.10-0.90); Monocytes % (Auto) 8.2 % (1.0-12.0); Platelet Count 165 K/mcL (140-440); RBC 4.06 M/mcL (4.63-6.08); WBC 6.6 K/mcL (4.5-11.0)
[2024-04-02] MEDS: ATORVASTATIN 10 MG TABLET PO SCH (08:55)
[2024-04-02] MEDS: LISINOPRIL 2.5 MG TABLET PO SCH (08:55)
[2024-04-02] MEDS: LEFLUNOMIDE 20 MG TABLET PO SCH (09:29)
[2024-04-02] MEDS: RIVAROXABAN 15 MG TABLET PO SCH (16:37)
[2024-04-02] MEDS: ACETAMINOPHEN 325 MG TABLET PO PRN (16:49)
[2024-04-03 06:35] LABS: Basophils # (Auto) 0.03 K/mcL (0.00-0.30); Basophils % (Auto) 0.4 % (0.0-2.0); Eosinophils # (Auto) 0.21 K/mcL (0.00-0.70); Eosinophils % (Auto) 2.9 % (0.0-7.0); Hematocrit 34.6 % (40.1-51.0); Hemoglobin 11.2 g/dL (13.7-17.5); Lymphocytes # (Auto) 0.55 K/mcL (1.50-4.80); Lymphocytes % (Auto) 7.6 % (15.5-49.0); Mean Cell Volume 83.8 fL (80.0-100.0); Mean Corpuscular HGB Conc 32.4 g/dL (31.0-36.0); Monocytes # (Auto) 0.62 K/mcL (0.10-0.90); Monocytes % (Auto) 8.6 % (1.0-12.0); Neutrophils % (Auto) 79.9 % (38.0-78.0); Platelet Count 160 K/mcL (140-440); RBC 4.13 M/mcL (4.63-6.08); Red Cell Distribution Width 14.8 % (11.5-14.5); WBC 7.3 K/mcL (4.5-11.0)
[2024-04-03 07:31] LABS: ALT/SGPT < 5 U/L (<40); AST/SGOT 13 U/L (<40); Albumin 3.2 gm/dL (3.2-5.2); Albumin/Globulin Ratio 1.1 (1.0-2.3); Alkaline Phosphatase 85 U/L (39-117); Bilirubin,Direct 0.3 mg/dL (<0.3); Bilirubin,Total 0.9 mg/dL (0.1-1.0); Blood Urea Nitrogen 41 mg/dL (8-23); Calcium 8.5 mg/dL (8.6-10.4); Carbon Dioxide 27 mmol/L (22-30); Chloride 100 mmol/L (96-108); Glomerular Filtration Rate 54; Glucose 126 mg/dL (70-105); Lactate Dehydrogenase 129 U/L (135-225); Phosphorous 3.2 mg/dL (2.5-4.5); Potassium 3.7 mmol/L (3.3-5.1); Sodium 138 mmol/L (133-145); Triglycerides 99 mg/dL (<150); Uric Acid 12.7 mg/dL (2.5-8.0)
[2024-04-03] MEDS: PREGABALIN 25 MG CAPSULE PO SCH (09:07)
[2024-04-04 07:35] LABS: ALT/SGPT < 5 U/L (<40); AST/SGOT 13 U/L (<40); Albumin 3.1 gm/dL (3.2-5.2); Alkaline Phosphatase 92 U/L (39-117); Bilirubin,Direct 0.3 mg/dL (<0.3); Bilirubin,Total 0.8 mg/dL (0.1-1.0); Blood Urea Nitrogen 39 mg/dL (8-23); Calcium 8.2 mg/dL (8.6-10.4); Carbon Dioxide 27 mmol/L (22-30); Chloride 97 mmol/L (96-108); Glomerular Filtration Rate 54; Glucose 195 mg/dL (70-105); Lactate Dehydrogenase 135 U/L (135-225); Phosphorous 2.7 mg/dL (2.5-4.5); Potassium 3.9 mmol/L (3.3-5.1); Sodium 133 mmol/L (133-145); Triglycerides 65 mg/dL (<150); Uric Acid 12.1 mg/dL (2.5-8.0)
== END 2024-04-05 13:30 | DRG 641 ==
LOC: ED 19:35 → MEDSUR 23:40
PROVIDERS: ADMIT Student in an Organized Health Care Education/Training Program; ATTEND Internal Medicine

== ENCOUNTER 2024-08-01 04:49 | Inpatient (IN) ==
[2024-08-01 05:18] LABS: Basophils # (Auto) 0.02 K/mcL (0.00-0.30); Basophils % (Auto) 0.2 % (0.0-2.0); Eosinophils # (Auto) 0.18 K/mcL (0.00-0.70); Eosinophils % (Auto) 2.1 % (0.0-7.0); Hematocrit 34.7 % (40.1-51.0); Hemoglobin 11.1 g/dL (13.7-17.5); Lymphocytes # (Auto) 0.32 K/mcL (1.50-4.80); Lymphocytes % (Auto) 3.8 % (15.5-49.0); Mean Cell Volume 86.5 fL (80.0-100.0); Mean Platelet Volume 10.8 fL (8.8-12.5); Monocytes # (Auto) 0.56 K/mcL (0.10-0.90); Monocytes % (Auto) 6.6 % (1.0-12.0); Neutrophils % (Auto) 87.1 % (38.0-78.0); Platelet Count 149 K/mcL (140-440); RBC 4.01 M/mcL (4.63-6.08); WBC 8.5 K/mcL (4.5-11.0)
[2024-08-01 05:41] LABS: ALT/SGPT 7 U/L (<40); AST/SGOT 17 U/L (<40); Albumin 3.4 gm/dL (3.2-5.2); Albumin/Globulin Ratio 1.1 (1.0-2.3); Alkaline Phosphatase 98 U/L (39-117); Blood Urea Nitrogen 93 mg/dL (8-23); Calcium 9.1 mg/dL (8.6-10.4); Carbon Dioxide 21 mmol/L (22-30); Chloride 99 mmol/L (96-108); Creatine Kinase 223 U/L (24-195); Glomerular Filtration Rate 36; Glucose 241 mg/dL (70-105); Potassium 4.4 mmol/L (3.3-5.1); Sodium 135 mmol/L (133-145)
[2024-08-01] MEDS: HYDROcodone/APAP 5/325MG TABLET PO ONE (07:13)
[2024-08-01 10:29] LABS: Appearance,Urine Clear (Clear); Bilirubin,Urine Negative (Negative); Color,Urine Yellow; Glucose,Urine (UA) Negative (Negative); Ketones,Urine Negative (Negative); Leukocyte Esterase,Urine Trace /uL (Negative); Nitrate,Urine Negative (Negative); PH,Urine 5.5 (5.0-9.0); Protein,Urine Negative (Negative); Specific Gravity,Urine 1.015 (1.000-1.035); Urine Blood Trace-lysed ery/mcL (Negative); Urine Hyaline Cast 34 /lph (0-2); Urine RBC 1 /hpf (0-3); Urine Squamous Epithelial Cell 0 /hpf (0-4); Urine WBC 2 /hpf (0-4); Urobilinogen,Urine Normal
[2024-08-01] MEDS ORDERED: ONDANSETRON 4 MG/2 ML VIAL IV PRN (11:05)
[2024-08-01] MEDS ORDERED: SENNOSIDES 1 TABLET PO PRN (11:05)
[2024-08-01] MEDS ORDERED: IPRATROPIUM/ALBUTEROL 3 ML AMPUL.NEB NEB PRN (11:05)
[2024-08-01] MEDS ORDERED: POLYETHYLENE GLYCOL 3350 17 GM PACKET PO PRN (11:05)
[2024-08-01] MEDS ORDERED: METOCLOPRAMIDE 10 MG/2 ML VIAL IV PRN (11:05)
[2024-08-01] MEDS ORDERED: POTASSIUM CHLORIDE 20 MEQ TABLET PO PRN ×2 (11:05)
[2024-08-01] MEDS ORDERED: POTASSIUM CHLORIDE 40 MEQ in DEXTROSE 5% IN WATER 500 ML IV PRN (11:05)
[2024-08-01] MEDS ORDERED: MAGNESIUM SULFATE 2 GM/50 ML BAG IV PRN (11:05)
[2024-08-01] MEDS ORDERED: DEXTROSE 50% 50 ML VIAL IV PRN (11:06)
[2024-08-01] MEDS ORDERED: DEXTROSE 31 GM ORAL.SUSP PO PRN (11:06)
[2024-08-01] MEDS ORDERED: METOPROLOL TARTRATE 5 MG/5 ML VIAL IV PRN (11:06)
[2024-08-01] MEDS: FUROSEMIDE 40 MG/4 ML VIAL IV SCH ×2 (12:02→15:06)
[2024-08-01] MEDS: 0.9 % SODIUM CHLORIDE 10 ML SYRINGE IV SCH (12:03)
[2024-08-01] MEDS: INSULIN LISPRO 1 UNIT/0.01 ML UNIT SQ SCH (12:32)
[2024-08-01] MEDS ORDERED: oxyCODONE IR 5 MG TABLET PO PRN (16:34)
[2024-08-01] MEDS: PANTOPRAZOLE 40 MG TABLET PO SCH (17:22)
[2024-08-01] MEDS: TAMSULOSIN 0.4 MG CAPSULE PO SCH (21:09)
[2024-08-01] MEDS: DOCUSATE SODIUM 100 MG CAPSULE PO SCH (21:09)
[2024-08-01] MEDS: METOPROLOL SUCCINATE 50 MG TAB.XL.24H PO SCH (21:09)
[2024-08-01] MEDS: INSULIN GLARGINE, HUMAN 1 UNIT/0.01 ML SQ SCH (21:10)
[2024-08-01] MEDS: PREGABALIN 75 MG CAPSULE PO SCH (21:14)
[2024-08-02 06:21] LABS: ALT/SGPT 6 U/L (<40); AST/SGOT 31 U/L (<40); Albumin/Globulin Ratio 1.1 (1.0-2.3); Alkaline Phosphatase 84 U/L (39-117); Bilirubin,Direct 0.6 mg/dL (<0.3); Bilirubin,Total 1.1 mg/dL (0.1-1.0); Blood Urea Nitrogen 98 mg/dL (8-23); Calcium 9.1 mg/dL (8.6-10.4); Carbon Dioxide 22 mmol/L (22-30); Chloride 103 mmol/L (96-108); Globulin 2.8 gm/dL (2.2-3.7); Glomerular Filtration Rate 36; Glucose 81 mg/dL (70-105); Lactate Dehydrogenase 159 U/L (135-225); Phosphorous 3.8 mg/dL (2.5-4.5); Potassium 4.1 mmol/L (3.3-5.1); Sodium 137 mmol/L (133-145); Triglycerides 75 mg/dL (<150); Uric Acid 13.7 mg/dL (2.5-8.0)
[2024-08-02] MEDS ORDERED: hydrALAZINE 20 MG/ML VIAL IV PRN (07:41)
[2024-08-02] MEDS ORDERED: LABETALOL HCL 20 MG/4 ML VIAL IV PRN (07:41)
[2024-08-02] MEDS: RIVAROXABAN 15 MG TABLET PO SCH (08:29)
[2024-08-02] MEDS: ASPIRIN 81 MG TAB.CHEW PO SCH (08:29)
[2024-08-02] MEDS: ATORVASTATIN 10 MG TABLET PO SCH (08:29)
[2024-08-02] MEDS: SPIRONOLACTONE 25 MG TABLET PO SCH (08:30)
[2024-08-02] MEDS: FUROSEMIDE 40 MG/4 ML VIAL IV SCH (12:08)
[2024-08-02] MEDS: ALBUMIN HUMAN 12.5 GM/50 ML VIAL IV ONE (12:09)
[2024-08-02] MEDS ORDERED: ALBUMIN HUMAN 12.5 GM/50 ML VIAL IV ONE (14:00)
[2024-08-03 06:18] LABS: ALT/SGPT 7 U/L (<40); AST/SGOT 30 U/L (<40); Albumin/Globulin Ratio 1.1 (1.0-2.3); Alkaline Phosphatase 85 U/L (39-117); Bilirubin,Direct 0.6 mg/dL (<0.3); Blood Urea Nitrogen 94 mg/dL (8-23); Calcium 8.8 mg/dL (8.6-10.4); Carbon Dioxide 24 mmol/L (22-30); Chloride 99 mmol/L (96-108); Globulin 2.7 gm/dL (2.2-3.7); Glomerular Filtration Rate 39; Glucose 174 mg/dL (70-105); Lactate Dehydrogenase 171 U/L (135-225); Phosphorous 3.4 mg/dL (2.5-4.5); Sodium 135 mmol/L (133-145); Triglycerides 72 mg/dL (<150); Uric Acid 14.1 mg/dL (2.5-8.0)
[2024-08-03] MEDS: ALBUMIN HUMAN 12.5 GM/50 ML VIAL IV ONE (09:53)
[2024-08-04 06:16] LABS: ALT/SGPT 7 U/L (<40); AST/SGOT 24 U/L (<40); Albumin 3.2 gm/dL (3.2-5.2); Albumin/Globulin Ratio 1.1 (1.0-2.3); Alkaline Phosphatase 90 U/L (39-117); Bilirubin,Direct 0.7 mg/dL (<0.3); Bilirubin,Total 1.2 mg/dL (0.1-1.0); Blood Urea Nitrogen 86 mg/dL (8-23); Carbon Dioxide 26 mmol/L (22-30); Chloride 98 mmol/L (96-108); Globulin 2.8 gm/dL (2.2-3.7); Glomerular Filtration Rate 42; Glucose 101 mg/dL (70-105); Lactate Dehydrogenase 147 U/L (135-225); Phosphorous 3.2 mg/dL (2.5-4.5); Potassium 3.9 mmol/L (3.3-5.1); Sodium 136 mmol/L (133-145); Triglycerides 74 mg/dL (<150); Uric Acid 14.3 mg/dL (2.5-8.0)
[2024-08-04] MEDS: ACETAMINOPHEN 325 MG TABLET PO PRN (08:28)
[2024-08-04 08:56] VITALS: O2SAT 97
[2024-08-04 13:48] VITALS: TEMP 98
== END 2024-08-04 13:12 | DRG 948 ==
LOC: MEDSUR 04:49 → ED 04:49 → MEDSUR 09:03
PROVIDERS: ADMIT Internal Medicine; ATTEND Internal Medicine